=== PATIENT | female | born 1960 | race Caucasian/White ===

== ENCOUNTER 2017-05-19 14:17 | Inpatient (IN) ==
--- NOTE | 2017-05-18 21:35 | Discharge Summary ---
<Pamela Rabago E - Last Filed: 05/18/17 21:32> Date of Encounter: 05/18/17 - Discharge Diagnosis (1) Osteoarthritis of right knee Priority: Primary Status: Chronic Qualifiers: Osteoarthritis type: unspecified Qualified Code(s): M17.11 - Unilateral primary osteoarthritis, right knee (2) Chronic pain Priority: Secondary Status: Chronic Qualifiers: Chronic pain type: other chronic pain Qualified Code(s): G89.29 - Other chronic pain (3) HTN (hypertension) Priority: Secondary Status: Chronic Qualifiers: Hypertension type: unspecified Qualified Code(s): I10 - Essential (primary ) hypertension (4) Anxiety Priority: Secondary Status: Chronic (5) Depression Priority: Secondary Status: Chronic Qualifiers: Depression Type: unspecified Qualified Code(s): F32.9 - Major depressive disorder, single episode, unspecified - Discharge Medications Home Medications: Ibuprofen [Motrin] 600 mg PO Q6HR PRN 7 Days #28 tab 05/18/17 [Rx] Amitriptyline [Elavil] 50 mg PO HS 05/19/17 [History] Lansoprazole [Prevacid] 30 mg PO DAILY 05/19/17 [History] Lidocaine 1 patch TD DAILY 05/19/17 [History] Lisinopril/Hydrochlorothiazide [Zestoretic 20-12.5 mg Tablet] 1 tab PO DAILY [History] OxyCODONE ER (12 HR) [OxyCONTIN] 30 mg PO Q12HR 05/19/17 [History] Oxycodone HCl 15 mg PO Q4H PRN 05/19/17 [History] Venlafaxine HCl 100 mg PO TID 05/19/17 [History] diazePAM [Valium] 10 mg PO TID 05/19/17 [History] Allergies/Adverse Reactions: 3 Allergy/AdvReac Type Severity Reaction Status Date / Time fentanyl AdvReac Vomiting Verified 05/19/17 14:34 morphine AdvReac Vomiting Verified 05/19/17 14:34 Primary care physician: Uvaldo Roque, - Patient Status Disposition: Home, Self-Care Condition: Good - Discharge Instructions Follow Up With: Uvaldo Roque DO [Primary Care Provider] - - Hospital Course Hospital course: Ms. Johnson is a 57 year old female - Time Spent with Patient Total time spent providing and/or coordinating discharge services: <MohsenDada - Last Filed: 05/22/17 08:37> Date of Encounter: 05/22/17 Time of Encounter: 08:37 - Discharge Diagnosis (1) Obesity (BMI 30.0-34.9) Priority: Secondary Status: Chronic (2) Osteoarthritis of right knee Priority: Primary Status: Chronic Qualifiers: Osteoarthritis type: unspecified Qualified Code(s): M17.11 - Unilateral primary osteoarthritis, right knee (3) Chronic pain Priority: Secondary Status: Chronic Qualifiers: Chronic pain type: other chronic pain Qualified Code(s): G89.29 - Other chronic pain (4) HTN (hypertension) Priority: Secondary Status: Chronic Qualifiers: Hypertension type: unspecified Qualified Code(s): I10 - Essential (primary ) hypertension (5) Anxiety Priority: Secondary Status: Chronic (6) Depression Priority: Secondary Status: Chronic Qualifiers: Depression Type: unspecified Qualified Code(s): F32.9 - Major depressive disorder, single episode, unspecified (7) Status post right knee replacement Priority: Primary Status: Acute (8) Acute blood loss anemia Priority: Primary Status: Acute Primary care physician: Uvaldo Roque, - Patient Status Functional capacity at discharge: uses cane/walker Overall status at discharge: patient is progressing back to baseline - Hospital Course Hospital course: Ms. Johnson is a 57 year old female Status post right total knee replacement. The patient had an uneventful postoperative course. They received antibiotics and physical therapy and were discharged in stable condition. There will follow -up in the office in 2 weeks. - Time Spent with Patient Total time spent providing and/or coordinating discharge services:
--- NOTE | 2017-05-18 21:36 | Physician Discharge Referral ---
Home Health/Hosp Referral Info Transfer to: Home Health Attending Provider: Dr Dada Connolly - Diagnosis (1) Osteoarthritis of right knee Priority: Primary Status: Chronic (2) Chronic pain Priority: Secondary Status: Chronic (3) HTN (hypertension) Priority: Secondary Status: Chronic (4) Anxiety Priority: Secondary Status: Chronic (5) Depression Priority: Secondary Status: Chronic (6) Status post right knee replacement Priority: Primary Status: Acute - Respiratory Orders Smoking Cessation: Smoking cessation has been advised. For more information, call the [employer] Tobacco Quit Line at 4-012-IGWU-NOW. - Dressing/Wound Care Site: right knee Type of Dressing/Treatments w/Frequency: Opsite placed. Keep dressing intact until first follow up appointment. If > 50% saturated, notify office, remove dressing and place appropriate dressing back in place. Leave Zipline intact. Opsite dressing is water resistant, not water- proof. OK to shower, but do not get dressing wet. - Diet/Nutrition Diet/Nutrition Orders: Regular - Activity Activity Orders: Up ad irma, Ambulate, Chair, Walker Activity: List: Total Knee replacement Precautions x 6 weeks Apply cold therapy wrap 3-6x/day for 20 minutes at a time. Encourage ambulation throughout the day and incentive spirometer 10x/hour. Elevate affected extremity above heart as tolerated. Brace: Wear knee immobilizer at night x 2 weeks. - Services Needed Following services are medically necessary services: Nursing, Home Health Aide, Physical Therapy, Occupational Therapy - Transfer Medications Prescriptions: Ibuprofen [Motrin] 600 mg PO Q6HR PRN 7 Days #28 tab PRN Reason: Pain Home Medications: Diazepam [Valium] 10 mg PO 11/19/14 [History] Lisinopril [Zestril] 20 mg PO 11/19/14 [History] OxyCODONE ER (12 HR) [Oxycontin] 30 mg PO 11/19/14 [History] OxyCODONE/APAP 10/325 [Percocet 10/325] 1 each PO Q6HR 11/19/14 [History] Cephalexin [Keflex] 1,000 mg PO BID #40 capsule 02/06/17 [Rx] Mupirocin [Bactroban Oint] 1 appl TP BID #1 tube 02/06/17 [Rx] Ibuprofen [Motrin] 600 mg PO Q6HR PRN 7 Days #28 tab 05/18/17 [Rx] Allergies/Adverse Reactions: 3 Allergy/AdvReac Type Severity Reaction Status Date / Time fentanyl Allergy Vomiting Verified 05/07/17 11:04 morphine Allergy Difficulty Verified 05/07/17 11:04 Breathing Certification: Further, I certify that my clinical findings support that this patient is homebound (i.e. absences from home require considerable and taxing effort and are for medical reasons or jain services or infrequently or short duration when for other reasons) because: Homebound Reason: Post-surgery restriction and or conditions limit ability to leave home Attestation: My signature below is to certify that this patient is under my care and that I, or nurse practitioner, or a physician document control assistant working with me, has a face-to- face encounter with this patient.
[2017-05-19] MEDS ORDERED: CeFAZolin Syr 2,000MG/20 ML 2,000 MG/20 ML SYRINGE IVPB ONE (14:39)
[2017-05-19] MEDS ORDERED: Plasma-Lyte A (PH 7.4) 1,000 ML IVC SCH (14:45)
[2017-05-19] MEDS ORDERED: Scopolamine Patch 1.5 MG PATCH.TD72 TD ONE (15:02)
[2017-05-19] MEDS ORDERED: Famotidine 20 MG/2 ML VIAL IVP ONE (15:02)
[2017-05-19] MEDS ORDERED: Pregabalin 75 MG CAPSULE PO ONE (15:03)
--- NOTE | 2017-05-19 15:06 | Anesthesia Evaluation PreOp ---
Date of Encounter: 05/19/17 Time of Encounter: 15:00 - Past History Planned Operation: Rt TKA Cardiac History: HTN Pulmonary History: Denies Any Significant HX BILLING REPRESENTATIVE History: Other (Chronic Low Back Pain) Other Medical History: Other (IBS Depression) Anesthesia History: No Prior Anesthetic Complications : No Test: Negative Alcohol Use: none Drug use: none Medications and Allergies Ibuprofen [Motrin] 600 mg PO Q6HR PRN 7 Days #28 tab 05/18/17 [Rx] Amitriptyline [Elavil] 50 mg PO HS 05/19/17 [History] Lansoprazole [Prevacid] 30 mg PO DAILY 05/19/17 [History] Lidocaine 1 patch TD DAILY 05/19/17 [History] Lisinopril/Hydrochlorothiazide [Zestoretic 20-12.5 mg Tablet] 1 tab PO DAILY [History] OxyCODONE ER (12 HR) [OxyCONTIN] 30 mg PO Q12HR 05/19/17 [History] Oxycodone HCl 15 mg PO Q4H PRN 05/19/17 [History] Venlafaxine HCl 100 mg PO TID 05/19/17 [History] diazePAM [Valium] 10 mg PO TID 05/19/17 [History] 3 Allergy/AdvReac Type Severity Reaction Status Date / Time fentanyl AdvReac Vomiting Verified 05/19/17 14:34 morphine AdvReac Vomiting Verified 05/19/17 14:34 - Meds/Allergy Pre-op Review Medications Reviewed: Yes Allergies Reviewed: Yes Beta Blockers on Current Med List: No Anesthesia Results - Labs Laboratory Tests 05/07/17 05/07/17 11:20 11:20 Hgb 12.7 Hct 40.3 Plt Count 323 Sodium 137 Potassium 4.0 BUN 19 Creatinine 0.73 - Imaging EKG: report reviewed (SR) Anesthesia Exam O2 Sat Height 1.56 m Height 1.56 m Weight 81.193 kg Weight 81.193 kg O2 Sat by Pulse Oximetry 96 Vital Signs Temp Pulse Resp BP Pulse Ox 97.7 F 74 18 117/77 96 05/19/17 14:48 05/19/17 14:48 05/19/17 14:48 05/19/17 14:48 05/19/17 14:48 Height: 5'2 Weight: 179 lbs NPO (# of Hours): MN Pain Scale: 0 - HEENT Pupil (Motor): Pupils equal, EOMI Mallampati: II Teeth: Normal (Chipped Tooth rt molar) Oral Opening: Greater than 3 - BILLING REPRESENTATIVE LOC: Oriented BILLING REPRESENTATIVE Motor: Normal RUE, Normal LUE, Normal RLE, Normal LLE, Normal Face BILLING REPRESENTATIVE Sensory: Normal: RUE, LUE, RLE, LLE, Face - Cardiac Rhythm: Regular Murmur: None JVD: No Carotid Bruit: No - Pulmonary Breath Sounds: bilateral Clear Respiratory Effort: Symmetrical Anesthesia Assess/Plan ASA Score: 2 Modified Audrey Scale for Level of Consciousness: Cooperative, oriented, and tranquil Anesthetic Plan: General, Regional Monitoring Plan: Standard Monitors Recovery Plan: PACU (Discussed GA and RA, agrees to proceed)
--- NOTE | 2017-05-19 16:40 | History & Physical Report ---
Date of Encounter: 05/19/17 Time of Encounter: 16:39 24 Hour HP Update - Instructions Instructions: If the History and Physical is less than 30 days old and was completed prior to A.M. admission and or procedure and has NOT been updated on calendar day of procedure please complete this update prior to performing procedure. - Update Patient reports changes in Medical Condition: No Changes in examination, assessment, or condition: No Changes in Medication: No Preop tests/diagnostics Reviewed: Yes Surgery Remains Indicated: Yes Consent for Planned Operative Procedure(s) Verified: Yes - Pre-Operative Checklist Preoperative Checklist Indicated: No Prophylactic Antibiotic Ordered: Yes Is VTE Prophylaxis Indicated?: Yes
[2017-05-19] MEDS ORDERED: ROPIVACAINE HCL/PF 0.5% 30 ML VIAL ONE (17:08)
[2017-05-19] MEDS ORDERED: *HR* Midazolam HCl 5 MG/5 ML VIAL IVP ONE (17:08)
[2017-05-19] MEDS ORDERED: Bupivacaine/Clonidine Syringe 1 EACH SYRINGE ONE (17:09)
--- NOTE | 2017-05-19 17:38 | Anesthesia Procedures ---
Date of Encounter: 05/19/17 Time of Encounter: 17:36 Procedures: Anesthesia - Nerve Block Procedure Date: 05/19/17 Time: 17:36 Allergies/Adv Reactions: morphine, fentanyl Pre-op Diagnosis: R knee arthritis Surgical Procedure: R TKA Checklist: Correct Patient Identifier, Correct procedure, History checked Correct side: Right Blood Thinner: No Monitor Applied: EKG, BP, Pulse Oximetry Supplemental Oxygen via Nasal Cannula (L/min): 3 Sedation: Versed (mg): 5 Indication: Post Op Analgesia Pre-op Neuro Deficits: No Block Type: Femoral, Other (iPACK) Catheter placed: No Sterile Technique: Yes Ultrasound used: Yes Anatomy identified: Yes Visual spread of Local: Yes Neuro Stimulation: Yes Nerve Stimulator Range: 0.2 - 0.4 mA Blood on Needle Aspiration: No Smooth Injection of Local: Yes Pain with Injection of Local: No Prep: Chlorhexadine Needle: 22 x 50 mm Stimuplex (for femoral n. block), 21 x 100 mm Stimuplex (for iPACK block) Local: 0.25% Bupivicaine w/Clonidine 20 mcg/cc (20mL for iPACK), Ropivacaine ( 30mL of 0.5% for femoral n. block) Number of Attempts: 1 Complications: None/effective block Vitals: please see Nicki LANDAVERDE's electronic documentation for VS entry
[2017-05-19] MEDS ORDERED: Ethanol\\Acetic Acid\\Na Ace\\Ben 1,000 ML IRRIG.SOLN IR ONE (17:49)
[2017-05-19] MEDS ORDERED: *HR* Enoxaparin 30 MG/0.3 ML SYRINGE SQ SCH (18:00)
[2017-05-19] MEDS ORDERED: *HR* Propofol 200 MG/20 ML VIAL IVP ONE (18:17)
[2017-05-19] MEDS ORDERED: *HR* FentaNYL (PF) 100 MCG/2 ML VIAL ONE (18:17)
[2017-05-19] MEDS ORDERED: Ondansetron 4 MG/2 ML VIAL ONE (18:17)
[2017-05-19] MEDS ORDERED: Lidocaine -MPF 2% 2 ML VIAL ONE (18:17)
[2017-05-19] MEDS ORDERED: Dexamethasone 4 MG/ML VIAL ONE (18:17)
--- NOTE | 2017-05-19 19:16 | Orthopedic Operative Note ---
Date of procedure: 05/19/17 Pre-op diagnosis: Right knee arthritis Post-op diagnosis: same Procedure: Procedure: Right Total knee replacement Estimated blood loss: 200 cc Hardware: Metal and polyethylene replacement. Arthrex Femur: 4 Tibia: 4 PS insert: 12 Patella: 34 Exam Under anesthesia: Full flexion and extension no instability Procedural Notes: Grade 3 arthritic changes patellofemoral joint, grade 4 arthritic changes medial compartment. Operative procedure: The patient was brought to the operating room and placed on the operating room table. After general anesthesia was administered the operative knee was examined. Findings were noted in the exam under anesthesia. The operative extremity was prepped and draped in sterile surgical fashion. The patient received IV antibiotics prior to skin incision. A standard midline incision was made centered over the patella. The incision was made through the skin and subcutaneous tissue. A medial parapatellar tendon approach was performed. Care was taken to preserve tissue along the medial aspect of the patella. And to protect the patella tendon. The deep MCL was released off the medial tibia. The infra patella fat pad was excised. Knee was brought into flexion. Patient noted to have grade 4 arthritic changes medial compartment and grade 3 arthritic changes patellofemoral joint. The entry hole was made for the intramedullary femoral guide. The guide was seated in 6 degrees of valgus. Anterior cut was made followed by the distal cut. The ACL the PCL the medial and the lateral menisci were excised. The tibia was subluxed forward. The entry hole was made for the intramedullary tibial guide. Guide was seated to resect 2 mm off the more abnormal side. The knee was brought into flexion the distal femur was sized 4. The femoral guide was seated , the anterior cut was made followed by the posterior condylar cut, followed by the chamfer cuts. The finishing guide was seated the box cut was made and the lug holes were drilled. The tibia was sized to a 4, the tibial tray was seated and prepared with the large drill followed by the fin cutter. Trial reduction revealed full extension no varus valgus instability with the appropriate 12 PS Jocelyne. The patella was everted and cut was made at the level of the insertion of the quadriceps and patella tendon. The patella was sized to a 34 the guide was seated and the lug holes are drilled. Trial reduction revealed excellent patella tracking. All trial components were removed all bony surfaces were irrigated. The tibia was cemented first followed by the femur. The 12 PS Jocelyne was seated and the knee was brought into full extension. The patella was cemented and held in place with the patellar holding clamp. After the cement had hardened, the knee sat for 2 minutes with a antibacterial saline solution. The PA closed the knee. The knee was then irrigated out with 2 L of pulse irrigation. The extensor mechanism was closed with #2 FiberWire suture and #2 PDS suture. The subcutaneous tissue was then irrigated and closed deep with #1 PDS suture superficially with 0 PDS suture and skin was closed with skin emiliano. The patient was then placed in a sterile dressing and a postoperative brace extubated and transferred to recovery room in stable condition. Anesthesia: GETA Surgeon: Dada Connolly Was there an captain's assistant present: Yes Ceramic Design Engineer: Pamela Rabago Estimated blood loss (cc): 200 Condition: stable Disposition: PACU
[2017-05-19] MEDS ORDERED: Ketorolac 30 MG/ML VIAL ONE (19:28)
[2017-05-19 20:26] LABS: Hematocrit 35.1 % (35.3-44.9); Hemoglobin 11.5 g/dL (11.5-15.4)
[2017-05-19] MEDS ORDERED: *HR* OxyCODONE/APAP 10/325 TABLET PO PRN ×2 (20:40)
--- NOTE | 2017-05-19 21:26 | Anesthesia Evaluation Post Op ---
Date of Encounter: 05/19/17 Time of Encounter: 21:25 - Vital Signs Vital Signs: Vital Signs/O2 Sat, Most Current Temp Pulse Resp BP Pulse Ox 97.7 F 84 20 129/82 96 05/19/17 14:48 05/19/17 20:40 05/19/17 20:40 05/19/17 20:40 05/19/17 20:40 - Lungs Lungs: Clear Ascult./Percussion - Airway Airway: Non-obstructed - Cardiovascular Regular Rate - Mental Status Mental Status: Alert & Oriented, Answers Appropriately - Pain Pain Scale: 7 Pain Scale used: Numeric (1 - 10) - Nausea Vomiting Nausea Vomiting: Not Present - Hydration Hydration: NPO, Has not voided - Discharge PostOp Status: Transfer Patient to floor
[2017-05-19] MEDS ORDERED: Ringers Solution, Lactated 1,000 ML IVC SCH (22:26)
[2017-05-19] MEDS ORDERED: Temazepam 15 MG CAPSULE PO PRN (22:26)
[2017-05-19] MEDS ORDERED: MOM Conc 10 ML UD.LIQ PO PRN (22:26)
[2017-05-19] MEDS ORDERED: Naloxone 0.4 MG/ML INJ IVP PRN (22:26)
[2017-05-19] MEDS ORDERED: Ondansetron 4 MG/2 ML VIAL IVP PRN (22:26)
[2017-05-19] MEDS ORDERED: Sennosides 8.6 MG TABLET PO PRN (22:26)
[2017-05-19] MEDS ORDERED: VENLAFAXINE HCL 100 MG PO SCH (22:26)
[2017-05-19] MEDS: diazePAM 10 MG TABLET PO SCH (23:28)
[2017-05-19] MEDS: CeFAZolin Premix DUPLEX 2,000 MG/50 ML BAG IVPB SCH (23:28)
[2017-05-19] MEDS: *HR* OxyCODONE ER (12 HR) 10 MG TABLET PO SCH (23:28)
[2017-05-19] MEDS: Venlafaxine 25 MG, Venlafaxine 75 MG PO SCH (23:37)
[2017-05-20] MEDS: *HR* OxyCODONE Immed Rel 15 MG TABLET PO PRN ×5 (04:36→23:30)
[2017-05-20] MEDS: *HR* OxyCODONE ER (12 HR) 10 MG TABLET PO SCH ×2 (05:59→17:08)
[2017-05-20] MEDS: *HR* Enoxaparin 30 MG/0.3 ML SYRINGE SQ SCH ×2 (06:00→18:43)
--- NOTE | 2017-05-20 06:57 | Orthopedics Progress Note ---
Date of Encounter: 05/20/17 Time of Encounter: 06:57 - Assessment and Plan (1) Obesity (BMI 30.0-34.9) Current Visit: Yes Status: Chronic (2) Osteoarthritis of right knee Current Visit: No Status: Chronic Qualifiers: Osteoarthritis type: unspecified Qualified Code(s): M17.11 - Unilateral primary osteoarthritis, right knee (3) Chronic pain Current Visit: No Status: Chronic Qualifiers: Chronic pain type: other chronic pain Qualified Code(s): G89.29 - Other chronic pain (4) HTN (hypertension) Current Visit: No Status: Chronic Qualifiers: Hypertension type: unspecified Qualified Code(s): I10 - Essential (primary ) hypertension (5) Anxiety Current Visit: No Status: Chronic (6) Depression Current Visit: No Status: Chronic Qualifiers: Depression Type: unspecified Qualified Code(s): F32.9 - Major depressive disorder, single episode, unspecified (7) Status post right knee replacement Current Visit: No Status: Acute Subjective Interval history: Patient was seen this morning doing well without complaints. Afebrile vital signs stable. Operative extremity: Neurovascularly intact Dressing clean dry and intact Calves nontender Assessment and plan: Continue with postoperative care Hematocrit 35 Objective Vital signs: Vital Signs Temp Pulse Resp BP Pulse Ox 05/20/17 03:47 98.8 F 81 16 115/75 97 05/20/17 00:30 98.9 F 89 16 118/74 97 05/19/17 23:30 98.9 F 82 16 102/57 97 05/19/17 22:30 98.4 F 76 16 100/67 99 05/19/17 22:00 98.5 F 82 16 121/87 100 05/19/17 21:30 98.5 F 80 18 131/85 100 05/19/17 20:50 82 20 125/93 98 05/19/17 20:40 97.9 F 84 20 129/82 96 05/19/17 20:30 88 20 108/74 95 05/19/17 20:20 93 22 108/74 98 05/19/17 20:10 93 20 105/91 99 05/19/17 20:00 91 20 119/72 99 05/19/17 14:48 97.7 F 74 18 117/77 96 Intake and Output 05/19/17 05/19/17 05/20/17 15:59 23:59 07:59 Intake Total 50 / 50 Output Total 400 / 400 Balance -350 / -350 Intake: IV Fluids 50 / 50 Ancef Premix DUPLEX 2,000 mg In 50 / 50 50 ml @ 100 mls/hr IVPB Q8HR [facility] Rx#:[id number] Output: Urine 200 / 200 Estimated Blood Loss 200 / 200 Other: Weight 81.193 kg - Labs CBC & BMP: 05/19/17 20:08 Labs: Abnormal lab results Hct 35.1 % (35.3-44.9) L 05/19/17 20:08 - VTE Documentation of Mechanical Device: Intermittent pneumatic compression device Consult Discharge Plan - Plan Referrals: Uvaldo Roque DO [Primary Care Provider] -
[2017-05-20] MEDS ORDERED: *HR* OxyCODONE Immed Rel 5 MG TABLET PO PRN (07:17)
[2017-05-20 07:33] LABS: Hematocrit 30.8 % (35.3-44.9)
[2017-05-20 09:28] LABS: BUN/Creatinine Ratio 32 (6-26); Blood Urea Nitrogen 24 mg/dL (6-20); Calcium 8.4 mg/dL (8.6-10.3); Carbon Dioxide 28 mEq/L (23-29); Chloride 100 mEq/L (98-107); Glucose 107 mg/dL (70-105); Osmolality,Calculated 279 (280-300); Potassium 4.2 mEq/L (3.5-5.1); Sodium 132 mEq/L (136-145); eGFR For African Americans > 60 (> 60); eGFR For Non-African Americans > 60 (> 60)
[2017-05-20] MEDS: diazePAM 10 MG TABLET PO SCH ×3 (09:38→21:37)
[2017-05-20] MEDS: Venlafaxine 25 MG, Venlafaxine 75 MG PO SCH ×3 (09:38→21:34)
[2017-05-20] MEDS: Lisinopril-HCTZ 20-12.5mg TABLET PO SCH (09:38)
[2017-05-20] MEDS: CeFAZolin Premix DUPLEX 2,000 MG/50 ML BAG IVPB SCH (09:39)
[2017-05-20] MEDS: Ibuprofen 800 MG TABLET PO PRN (15:20)
[2017-05-20] MEDS ORDERED: *HR* HYDROmorphone (PF) 1 MG/ML SYRINGE IVP PRN (16:34)
[2017-05-20] MEDS: Ketorolac 30 MG/ML VIAL IVP SCH ×2 (17:08→23:29)
--- NOTE | 2017-05-20 17:14 | Event Note ---
Date of Encounter: 05/20/17 Time of Encounter: 12:50 PCR- POD# 1 R LOUISEDutch Connolly 05/19/17 PCR - Patient seen at bedside. Pain control: Adequate Participating in PT. All questions and concerns addressed. Educated on use of incentive spirometer, ambulation, and hydration. Patient educated on post-operative restrictions and care. Addressed: see above. D/C plan: Home with home health - patient takes chronic pain medication and is aware we will not be prescribing any upon discharge. Patient does have Ibuprofen script as she requested ready for discharge.
[2017-05-20] MEDS: Gabapentin 300 MG CAPSULE PO SCH (17:19)
[2017-05-20] MEDS: Acetaminophen IV 1,000 MG/100 ML INFUS..BTL IVPB PRN (17:38)
[2017-05-20] MEDS: *HR* OxyCODONE Immed Rel 5 MG TABLET PO PRN (21:34)
[2017-05-21] MEDS: Gabapentin 300 MG CAPSULE PO SCH ×3 (01:14→18:03)
[2017-05-21] MEDS: Ketorolac 30 MG/ML VIAL IVP SCH (05:41)
[2017-05-21] MEDS: *HR* Enoxaparin 30 MG/0.3 ML SYRINGE SQ SCH ×2 (05:41→18:03)
[2017-05-21] MEDS: *HR* OxyCODONE ER (12 HR) 10 MG TABLET PO SCH ×2 (05:41→18:03)
[2017-05-21 06:52] LABS: Hematocrit 27.3 % (35.3-44.9); Hemoglobin 9.1 g/dL (11.5-15.4)
[2017-05-21 08:21] LABS: BUN/Creatinine Ratio 22 (6-26); Blood Urea Nitrogen 17 mg/dL (6-20); Calcium 8.3 mg/dL (8.6-10.3); Carbon Dioxide 27 mEq/L (23-29); Chloride 92 mEq/L (98-107); Glucose 105 mg/dL (70-105); Osmolality,Calculated 262 (280-300); Potassium 3.5 mEq/L (3.5-5.1); Sodium 125 mEq/L (136-145); eGFR For African Americans > 60 (> 60); eGFR For Non-African Americans > 60 (> 60)
[2017-05-21] MEDS: Lisinopril-HCTZ 20-12.5mg TABLET PO SCH (09:02)
[2017-05-21] MEDS: *HR* OxyCODONE Immed Rel 15 MG TABLET PO PRN ×2 (09:26→13:34)
[2017-05-21] MEDS: Venlafaxine 25 MG, Venlafaxine 75 MG PO SCH ×3 (09:27→21:24)
[2017-05-21] MEDS: diazePAM 10 MG TABLET PO SCH ×3 (09:27→21:24)
--- NOTE | 2017-05-21 10:31 | Orthopedics Progress Note ---
Date of Encounter: 05/21/17 Time of Encounter: 10:30 - Assessment and Plan (1) Obesity (BMI 30.0-34.9) Current Visit: Yes Status: Chronic (2) Osteoarthritis of right knee Current Visit: No Status: Chronic Qualifiers: Osteoarthritis type: unspecified Qualified Code(s): M17.11 - Unilateral primary osteoarthritis, right knee (3) Chronic pain Current Visit: No Status: Chronic Qualifiers: Chronic pain type: other chronic pain Qualified Code(s): G89.29 - Other chronic pain (4) HTN (hypertension) Current Visit: No Status: Chronic Qualifiers: Hypertension type: unspecified Qualified Code(s): I10 - Essential (primary ) hypertension (5) Anxiety Current Visit: No Status: Chronic (6) Depression Current Visit: No Status: Chronic Qualifiers: Depression Type: unspecified Qualified Code(s): F32.9 - Major depressive disorder, single episode, unspecified (7) Status post right knee replacement Current Visit: No Status: Acute (8) Acute blood loss anemia Current Visit: Yes Status: Acute Subjective Interval history: Patient was seen this morning doing well without complaints. Afebrile vital signs stable. Operative extremity: Neurovascularly intact Dressing clean dry and intact Calves nontender Assessment and plan: Continue with postoperative care hb 9.1 Objective Vital signs: Vital Signs Temp Pulse Resp BP Pulse Ox 05/21/17 09:07 111/71 05/21/17 07:53 98.4 F 88 16 97/63 93 05/20/17 19:54 98.5 F 82 15 134/82 99 05/20/17 16:14 97.5 F L 90 16 129/78 100 05/20/17 13:56 98.6 F 84 20 110/68 100 Intake and Output 05/20/17 05/21/17 05/21/17 23:59 07:59 15:59 Other: # Voids 1 - Labs CBC & BMP: 05/21/17 06:12 05/21/17 06:12 Labs: Abnormal lab results Hgb 9.1 g/dL (11.5-15.4) L 05/21/17 06:12 Hct 27.3 % (35.3-44.9) L 05/21/17 06:12 Sodium 125 mEq/L (136-145) L 05/21/17 06:12 Chloride 92 mEq/L (98-107) L 05/21/17 06:12 Calculated Osmolality 262 (280-300) L 05/21/17 06:12 Calcium 8.3 mg/dL (8.6-10.3) L 05/21/17 06:12 - VTE Documentation of Mechanical Device: Intermittent pneumatic compression device Consult Discharge Plan - Plan Referrals: Uvaldo Roque DO [Primary Care Provider] -
[2017-05-21] MEDS: Ibuprofen 800 MG TABLET PO PRN (11:30)
[2017-05-21] MEDS: Acetaminophen IV 1,000 MG/100 ML INFUS..BTL IVPB PRN ×2 (15:58→23:38)
[2017-05-22] MEDS: Gabapentin 300 MG CAPSULE PO SCH ×2 (00:14→10:35)
[2017-05-22] MEDS: *HR* Enoxaparin 30 MG/0.3 ML SYRINGE SQ SCH (06:15)
[2017-05-22] MEDS: *HR* OxyCODONE ER (12 HR) 10 MG TABLET PO SCH (06:15)
[2017-05-22 07:31] VITALS: BP 126/79
--- NOTE | 2017-05-22 08:38 | Orthopedics Progress Note ---
Date of Encounter: 05/22/17 Time of Encounter: 08:38 - Assessment and Plan (1) Obesity (BMI 30.0-34.9) Current Visit: Yes Status: Chronic (2) Osteoarthritis of right knee Current Visit: No Status: Chronic Qualifiers: Osteoarthritis type: unspecified Qualified Code(s): M17.11 - Unilateral primary osteoarthritis, right knee (3) Chronic pain Current Visit: No Status: Chronic Qualifiers: Chronic pain type: other chronic pain Qualified Code(s): G89.29 - Other chronic pain (4) HTN (hypertension) Current Visit: No Status: Chronic Qualifiers: Hypertension type: unspecified Qualified Code(s): I10 - Essential (primary ) hypertension (5) Anxiety Current Visit: No Status: Chronic (6) Depression Current Visit: No Status: Chronic Qualifiers: Depression Type: unspecified Qualified Code(s): F32.9 - Major depressive disorder, single episode, unspecified (7) Status post right knee replacement Current Visit: No Status: Acute (8) Acute blood loss anemia Current Visit: Yes Status: Acute Subjective Interval history: Patient was seen this morning doing well without complaints. Afebrile vital signs stable. Operative extremity: Neurovascularly intact Dressing clean dry and intact Calves nontender Assessment and plan: Continue with postoperative care Discharged today Objective Vital signs: Vital Signs Temp Pulse Resp BP Pulse Ox 05/22/17 06:44 97.8 F 76 18 126/79 99 05/21/17 23:51 97.9 F 83 17 121/74 98 05/21/17 20:23 97.7 F 85 20 124/74 98 05/21/17 15:34 98.2 F 82 16 120/80 97 05/21/17 09:07 111/71 Intake and Output 05/21/17 05/22/17 05/22/17 23:59 07:59 15:59 Intake Total 900 / 900 0 / 0 Output Total 450 / 450 Balance 900 / 900 -450 / -450 Intake: IV Fluids 100 / 100 Ofirmev 1,000 mg/100 ml 1,000 100 / 100 mg In 100 ml @ 400 mls/hr IVPB Q6H PRN Rx#:[id number] Oral 800 / 800 0 / 0 Output: Urine 450 / 450 Other: # Voids 1 - Labs CBC & BMP: 05/21/17 06:12 05/21/17 06:12 Labs: Abnormal lab results Hgb 9.1 g/dL (11.5-15.4) L 05/21/17 06:12 Hct 27.3 % (35.3-44.9) L 05/21/17 06:12 Sodium 125 mEq/L (136-145) L 05/21/17 06:12 Chloride 92 mEq/L (98-107) L 05/21/17 06:12 Calculated Osmolality 262 (280-300) L 05/21/17 06:12 Calcium 8.3 mg/dL (8.6-10.3) L 05/21/17 06:12 - VTE Documentation of Mechanical Device: Intermittent pneumatic compression device Consult Discharge Plan - Plan Referrals: Uvaldo Roque DO [Primary Care Provider] -
[2017-05-22] MEDS: Lisinopril-HCTZ 20-12.5mg TABLET PO SCH (09:06)
[2017-05-22] MEDS: *HR* OxyCODONE Immed Rel 5 MG TABLET PO PRN ×2 (09:07→13:14)
[2017-05-22] MEDS: Venlafaxine 25 MG, Venlafaxine 75 MG PO SCH (10:35)
[2017-05-22] MEDS: diazePAM 10 MG TABLET PO SCH (10:35)
[2017-05-22] MEDS: Ibuprofen 800 MG TABLET PO PRN (12:11)
== END 2017-05-22 13:43 | disposition home or self-care (01) | DRG 302 ==
LOC: SAMDAY 14:17 → 3NENU 21:24
PROVIDERS: ADMIT Orthopaedic Surgery; ATTEND Orthopaedic Surgery

== ENCOUNTER 2017-05-27 17:30 | Inpatient (IN) ==
--- NOTE | 2017-05-27 19:39 | Emergency Department Note ---
Disposition Clinical Impression: Status post right knee replacement, Cellulitis and abscess of leg Disposition: Admitted As Inpatient Referrals: Uvaldo Roque DO [Primary Care Provider] - Forms: ED Satisfaction Letter General Adult HPI - General Chief complaint: ED Shortness of Breath/Dyspnea Stated complaint: SEDRICK, recent knee replacement Time Seen by Provider: 05/27/17 19:19 Source: patient Limitations: no limitations Nursing Notes Reviewed: Yes Vital Signs Reviewed: Yes - History of Present Illness Pain Scale: 10 - Related Data Home Medications Medication Instructions Recorded Confirmed Amitriptyline [Elavil] 50 mg PO HS 05/19/17 05/19/17 Lansoprazole [Prevacid] 30 mg PO DAILY 05/19/17 05/27/17 Lidocaine 1 patch TD DAILY 05/19/17 05/27/17 Lisinopril/Hydrochlorothiazide 1 tab PO DAILY 05/19/17 05/27/17 [Zestoretic 20-12.5 mg Tablet] OxyCODONE ER (12 HR) [OxyCONTIN] 30 mg PO Q12HR 05/19/17 05/27/17 Oxycodone HCl 15 mg PO Q4H PRN 05/19/17 05/27/17 Venlafaxine HCl 100 mg PO TID 05/19/17 05/27/17 diazePAM [Valium] 10 mg PO TID 05/19/17 05/27/17 Previous Rx's Medication Instructions Recorded Ibuprofen [Motrin] 600 mg PO Q6HR PRN 7 Days #28 tab 05/18/17 Allergies Allergy/AdvReac Type Severity Reaction Status Date / Time fentanyl AdvReac Vomiting Verified 05/27/17 17:47 morphine AdvReac Vomiting Verified 05/27/17 17:47 Past Medical History - Past Medical History Medical history: Reports: other Surgical history: Reports: non-contributory, herniorrhaphy, hysterectomy, orthopedic, other, other Psychiatric history: Reports: depression 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 - Social History Smoking Status: Never smoker Smokeless Tobacco Status: No Alcohol use: Reports: none Drug use: Reports: none Physical Exam - General Limitations: no limitations General appearance: alert Course Vital Signs Temperature 99.6 F 05/27/17 17:47 Pulse Rate 64 05/27/17 17:47 Respiratory Rate 24 05/27/17 17:47 Blood Pressure 141/61 05/27/17 17:47 O2 Sat by Pulse Oximetry 95 05/27/17 17:47 Temperature 99.6 F 05/27/17 17:47 Pulse Rate 99 05/27/17 22:24 Respiratory Rate 18 05/27/17 22:24 Blood Pressure 104/75 05/27/17 22:24 O2 Sat by Pulse Oximetry 98 05/27/17 22:24 Oxygen Delivery Oxygen Delivery Room Air Medical Decision Making - MDM Narrative Medical decision making narrative: This documentation is done with the assistance of Dragon dictation. There may be inaccuracies in reclaimer or spelling and typographical errors. I examined this patient and my medical decision-making was reviewed with the Resident Physician. I agree with the documented findings, disposition and treatment plan as described except to the extent set forth below. Patient presents today was seen by Dr. Trinidad and myself, high-grade his evaluation and management plan, supervise care the patient's stay. Patient's postop 1 week from knee surgery on her left knee done by Dr. Connolly here. She is increased swelling around the area she has also had a cough and subjective warmth to the area home but it is red and warm to the area without C drainage now. She has a quite a bit of swelling on the surgical side versus her normal leg. She denies any abdominal pain at this time no chest pain. Going to rule out DVT on the side. I also think that this could be infected so look that was CBC she may need antibiotics was likely to need admission. She is in agreement with this plan. Chest X-Ray 05/27/17 17:52 IMPRESSION: No acute abnormality. D/ / Rosendo Goldstein MD / Rosendo Goldstein MD Interpreting Provider: Rosendo Goldstein MD 2100 hrs.: DVT study is negative per vascular specialists. Waiting on CTA and lab work. Chest X-Ray 05/27/17 17:52 IMPRESSION: No acute abnormality. D/ / Rosendo Goldstein MD / Rosendo Goldstein MD Interpreting Provider: Rosendo Goldstein MD Chest CTA 05/27/17 19:51 IMPRESSION: No convincing evidence for pulmonary embolism. Suboptimal evaluation of the distal segmental and subsegmental vessels as described above. No evidence for right heart strain or pulmonary infarction. D/ / Renato Carr MD / Renato Carr MD Interpreting Provider: Renato Carr MD Knee X-Ray 05/27/17 20:08 IMPRESSION: Diffuse soft tissue swelling new from the comparison. No acute abnormality of the knee otherwise including the arthroplasty, which appears normal. D/ / Kaiser Perera MD / Kaiser Perera MD Interpreting Provider: Kaiser Perera MD 2146 hrs. Due to her postop the redness and warmth on her knee negative rule out for DVT and PE and will start her on anabolic serum bring her into the hospital. She is in agreement with plan orthopedics in and see her also. - Lab Data Result diagrams: 05/27/17 20:21 05/27/17 20:21 Lab Results 05/27/17 05/27/17 05/27/17 Range/Units 20:00 20:21 20:21 WBC 8.6 (4.3-11.1) K/mcL RBC 2.82 L (3.82-4.97) M/mcL Hgb 8.5 L (11.5-15.4) g/dL Hct 26.0 L (35.3-44.9) % MCV 92.2 (83.0-100.0) fL MCH 30.1 (28.0-33.3) pg MCHC 32.7 (31.6-35.5) g/dL RDW 12.8 (11.5-14.5) % Plt Count 399 (140-400) K/mcL MPV 9.1 L (9.4-12.4) fL Immature Gran % 0.6 (0-4) % Seg Neutrophils % 60.9 % Lymphocytes % 21.3 % Monocytes % 7.1 % Eosinophils % 9.7 % Basophils % 0.4 % Neutrophils # 5.2 (1.6-8.9) K/mcL Lymphocytes # 1.8 (0.6-4.6) K/mcL Monocytes # 0.6 (0.0-1.3) K/mcL Eosinophils # 0.8 H (0.0-0.6) K/mcL Basophils # 0.0 (0.0-0.2) K/mcL Sodium 134 L (136-145) mEq/L Potassium 4.0 (3.5-5.1) mEq/L Chloride 99 (98-107) mEq/L Carbon Dioxide 33 H (23-29) mEq/L BUN 11 (6-20) mg/dL Creatinine 0.54 L (0.60-1.20) mg/dL Est GFR ( Amer) > 60 (> 60) Est GFR (Non-Af Amer) > 60 (> 60) BUN/Creatinine Ratio 20 (6-26) Glucose 77 (70-105) mg/dL Calculated Osmolality 276 L (280-300) Lactic Acid (0.5-2.2) mmol/L Calcium 9.0 (8.6-10.3) mg/dL Total Bilirubin 0.4 (0.3-1.0) mg/dL AST 19 (13-39) Units/L ALT 18 (7-52) Units/L Alkaline Phosphatase 132 H (34-104) Units/L Troponin I (< 0.04) ng/mL Serum Total Protein 6.5 (6.4-8.9) g/dL Albumin 3.8 (3.5-5.7) g/dL Globulin 2.7 (2.4-3.5) g/dL Albumin/Globulin Ratio 1.4 (1.1-2.2) Urine Color Yellow (Yellow) Urine Clarity Clear (Clear) Urine pH 7.0 (5.0-8.0) pH Units Ur Specific [place] 1.013 (1.010-1.025) Urine Protein Negative (Neg-Trace) mg/dL Urine Glucose (UA) Normal (Normal) mg/dL Urine Ketones Negative (Negative) mg/dL Urine Blood Negative (Negative) Urine Nitrite Negative (Negative) Urine Bilirubin Negative (Negative) Urine Urobilinogen Normal (Normal) mg/dL Ur Leukocyte Esterase Negative (Negative) Ur Culture Indicated? NO (NO) 05/27/17 05/27/17 Range/Units 20:21 20:21 WBC (4.3-11.1) K/mcL RBC (3.82-4.97) M/mcL Hgb (11.5-15.4) g/dL Hct (35.3-44.9) % MCV (83.0-100.0) fL MCH (28.0-33.3) pg MCHC (31.6-35.5) g/dL RDW (11.5-14.5) % Plt Count (140-400) K/mcL MPV (9.4-12.4) fL Immature Gran % (0-4) % Seg Neutrophils % % Lymphocytes % % Monocytes % % Eosinophils % % Basophils % % Neutrophils # (1.6-8.9) K/mcL Lymphocytes # (0.6-4.6) K/mcL Monocytes # (0.0-1.3) K/mcL Eosinophils # (0.0-0.6) K/mcL Basophils # (0.0-0.2) K/mcL Sodium (136-145) mEq/L Potassium (3.5-5.1) mEq/L Chloride (98-107) mEq/L Carbon Dioxide (23-29) mEq/L BUN (6-20) mg/dL Creatinine (0.60-1.20) mg/dL Est GFR ( Amer) (> 60) Est GFR (Non-Af Amer) (> 60) BUN/Creatinine Ratio (6-26) Glucose (70-105) mg/dL Calculated Osmolality (280-300) Lactic Acid 0.9 (0.5-2.2) mmol/L Calcium (8.6-10.3) mg/dL Total Bilirubin (0.3-1.0) mg/dL AST (13-39) Units/L ALT (7-52) Units/L Alkaline Phosphatase (34-104) Units/L Troponin I < 0.03 (< 0.04) ng/mL Serum Total Protein (6.4-8.9) g/dL Albumin (3.5-5.7) g/dL Globulin (2.4-3.5) g/dL Albumin/Globulin Ratio (1.1-2.2) Urine Color (Yellow) Urine Clarity (Clear) Urine pH (5.0-8.0) pH Units Ur Specific [place] (1.010-1.025) Urine Protein (Neg-Trace) mg/dL Urine Glucose (UA) (Normal) mg/dL Urine Ketones (Negative) mg/dL Urine Blood (Negative) Urine Nitrite (Negative) Urine Bilirubin (Negative) Urine Urobilinogen (Normal) mg/dL Ur Leukocyte Esterase (Negative) Ur Culture Indicated? (NO)
[2017-05-27] MEDS ORDERED: *HR* OxyCODONE Immed Rel 5 MG TABLET PO ONE (19:50)
--- NOTE | 2017-05-27 19:51 | Emergency Department Note ---
Disposition Clinical Impression: Swelling of right lower extremity, Cellulitis of right lower extremity S/P total knee arthroplasty Qualifiers: Laterality: right Qualified Code(s): Z96.651 - Presence of right artificial knee joint Disposition: Admitted As Inpatient Condition: Fair Referrals: Uvaldo Roque DO [Primary Care Provider] - Forms: ED Satisfaction Letter Time of Disposition: 22:36 SOB HPI - General Chief Complaint: ED Shortness of Breath/Dyspnea Stated Complaint: SEDIRCK, recent knee replacement Time Seen by Provider: 05/27/17 19:19 Source: patient Mode of arrival: ambulatory Limitations: no limitations Nursing Notes Reviewed: Yes Vital Signs Reviewed: Yes - History of Present Illness 57-year-old female history of hypertension, obesity, arthritis this, status post right knee replacement with Dr. Connolly one week ago, the patient presents complaining of right knee pain and swelling. Patient is ambulatory with a walker. She states she has had worsening pain, low-grade fevers at home, patient denies dysuria. She denies history of DVT or PE however interestingly, she does have a Malik filter that was placed after previous surgery. The patient states that she has had some cough but nonproductive, some shortness of breath and tightness in her chest, she describes the leg pain as being 8 out of 10, nonradiating throughout her whole leg worse her knee. Worse with weightbearing. Pt Subjective Complaint: shortness of breath Improves with: nothing Worsens with: nothing Associated symptoms: Reports: chest pain, fever, cough, other (Right knee pain) . Denies: pain with inspiration, orthopnea, lower extremity pain, palpitations Treatment prior to arrival: none Cough present: Yes - Related Data Home Medications Medication Instructions Recorded Confirmed Amitriptyline [Elavil] 50 mg PO HS 05/19/17 05/19/17 Lansoprazole [Prevacid] 30 mg PO DAILY 05/19/17 05/27/17 Lidocaine 1 patch TD DAILY 05/19/17 05/27/17 Lisinopril/Hydrochlorothiazide 1 tab PO DAILY 05/19/17 05/27/17 [Zestoretic 20-12.5 mg Tablet] OxyCODONE ER (12 HR) [OxyCONTIN] 30 mg PO Q12HR 05/19/17 05/27/17 Oxycodone HCl 15 mg PO Q4H PRN 05/19/17 05/27/17 Venlafaxine HCl 100 mg PO TID 05/19/17 05/27/17 diazePAM [Valium] 10 mg PO TID 05/19/17 05/27/17 Previous Rx's Medication Instructions Recorded Ibuprofen [Motrin] 600 mg PO Q6HR PRN 7 Days #28 tab 05/18/17 Allergies Allergy/AdvReac Type Severity Reaction Status Date / Time fentanyl AdvReac Vomiting Verified 05/27/17 17:47 morphine AdvReac Vomiting Verified 05/27/17 17:47 All systems ED: reviewed and negative except as stated. Review of Systems: As Per HPI Constitutional: Reports: fever, chills Eyes: Denies: eye pain ENT ED: Denies: ear pain Cardiovascular: Denies: chest pain Respiratory: Reports: as per HPI, cough. Denies: dyspnea Gastrointestinal: Denies: abdominal pain, nausea Genitourinary: Denies: urgency, dysuria Musculoskeletal: Reports: as per HPI, joint swelling, arthralgia. Denies: back pain Integumentary: Denies: rash, abrasion Neurological: Denies: headache Psychiatric: Denies: anxiety Past Medical History - Past Medical History Attestation: Yes The following information was validated with the patient. 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 - Social History Smoking Status: Never smoker Smokeless Tobacco Status: No Alcohol use: Reports: none Drug use: Reports: none Physical Exam - General Limitations: no limitations General appearance: alert - Head Head exam: atraumatic - Eye Eye exam: Present: normal appearance, PERRL - ENT ENT exam: normal exam - Neck Neck exam: Present: normal inspection, full ROM - Chest Chest inspection: Present: normal inspection - Respiratory Respiratory exam: Present: normal lung sounds bilaterally - Cardiovascular Cardiovascular exam: Present: regular rate, normal rhythm - Abdominal Exam Abdominal exam: Present: soft, Non-Tender. Absent: tenderness, distention, guarding, rebound, rigidity - Expanded Lower Extremity Exam Hip/Pelvis exam: Present: normal inspection, full ROM Upper leg exam: Present: tenderness, swelling 1 - Erythematous, no crepitus, +3 pitting edema, no pus or drainage from the wound. Knee exam: Present: tenderness, swelling Lower leg exam: Present: tenderness, swelling, erythema Ankle exam: Present: tenderness, swelling, erythema Foot/toe exam: Present: tenderness, swelling, erythema - Neurological Exam Neurological exam: Present: alert, oriented X3, CN II-XII intact - Psychiatric Psychiatric exam: Present: normal affect Course Course Narrative: 57-year-old female with right knee pain, swollen joint postsurgical scar. On the right anterior knee with no purulence, however there is erythema and warmth , redness, no crepitus, knee x-ray as well as DVT study given that she is having upper respiratory symptoms CT of her chest as well. Basic lab work and reassess - Consultations Consultation #1: I spoke with Dr. Connolly in the emergency department, he agrees with admission and empiric antibiotics for coverage for possible joint infection postoperative , admitted to medicine service Dr. Mojica excepting at this time. Time: 22:34 Vital Signs Temperature 99.6 F 05/27/17 17:47 Pulse Rate 64 05/27/17 17:47 Respiratory Rate 24 05/27/17 17:47 Blood Pressure 141/61 05/27/17 17:47 O2 Sat by Pulse Oximetry 95 05/27/17 17:47 Temperature 99.6 F 05/27/17 17:47 Pulse Rate 99 05/27/17 22:24 Respiratory Rate 18 05/27/17 22:24 Blood Pressure 104/75 05/27/17 22:24 O2 Sat by Pulse Oximetry 98 05/27/17 22:24 Oxygen Delivery Oxygen Delivery Room Air Shortness of Breath/Dyspnea - Differential Diagnosis Likely: acute exacerbation of chronic obstructive airways disease, congestive heart failure, pneumonia, asthma with exacerbation - Medical Records Medical records reviewed: Yes I reviewed the patient's medical records. - Lab Data Result diagrams: 05/27/17 20:21 05/27/17 20:21 Lab Results 05/27/17 05/27/17 05/27/17 Range/Units 20:00 20:21 20:21 WBC 8.6 (4.3-11.1) K/mcL RBC 2.82 L (3.82-4.97) M/mcL Hgb 8.5 L (11.5-15.4) g/dL Hct 26.0 L (35.3-44.9) % MCV 92.2 (83.0-100.0) fL MCH 30.1 (28.0-33.3) pg MCHC 32.7 (31.6-35.5) g/dL RDW 12.8 (11.5-14.5) % Plt Count 399 (140-400) K/mcL MPV 9.1 L (9.4-12.4) fL Immature Gran % 0.6 (0-4) % Seg Neutrophils % 60.9 % Lymphocytes % 21.3 % Monocytes % 7.1 % Eosinophils % 9.7 % Basophils % 0.4 % Neutrophils # 5.2 (1.6-8.9) K/mcL Lymphocytes # 1.8 (0.6-4.6) K/mcL Monocytes # 0.6 (0.0-1.3) K/mcL Eosinophils # 0.8 H (0.0-0.6) K/mcL Basophils # 0.0 (0.0-0.2) K/mcL Sodium 134 L (136-145) mEq/L Potassium 4.0 (3.5-5.1) mEq/L Chloride 99 (98-107) mEq/L Carbon Dioxide 33 H (23-29) mEq/L BUN 11 (6-20) mg/dL Creatinine 0.54 L (0.60-1.20) mg/dL Est GFR ( Amer) > 60 (> 60) Est GFR (Non-Af Amer) > 60 (> 60) BUN/Creatinine Ratio 20 (6-26) Glucose 77 (70-105) mg/dL Calculated Osmolality 276 L (280-300) Lactic Acid (0.5-2.2) mmol/L Calcium 9.0 (8.6-10.3) mg/dL Total Bilirubin 0.4 (0.3-1.0) mg/dL AST 19 (13-39) Units/L ALT 18 (7-52) Units/L Alkaline Phosphatase 132 H (34-104) Units/L Troponin I (< 0.04) ng/mL Serum Total Protein 6.5 (6.4-8.9) g/dL Albumin 3.8 (3.5-5.7) g/dL Globulin 2.7 (2.4-3.5) g/dL Albumin/Globulin Ratio 1.4 (1.1-2.2) Urine Color Yellow (Yellow) Urine Clarity Clear (Clear) Urine pH 7.0 (5.0-8.0) pH Units Ur Specific [place] 1.013 (1.010-1.025) Urine Protein Negative (Neg-Trace) mg/dL Urine Glucose (UA) Normal (Normal) mg/dL Urine Ketones Negative (Negative) mg/dL Urine Blood Negative (Negative) Urine Nitrite Negative (Negative) Urine Bilirubin Negative (Negative) Urine Urobilinogen Normal (Normal) mg/dL Ur Leukocyte Esterase Negative (Negative) Ur Culture Indicated? NO (NO) 05/27/17 05/27/17 Range/Units 20:21 20:21 WBC (4.3-11.1) K/mcL RBC (3.82-4.97) M/mcL Hgb (11.5-15.4) g/dL Hct (35.3-44.9) % MCV (83.0-100.0) fL MCH (28.0-33.3) pg MCHC (31.6-35.5) g/dL RDW (11.5-14.5) % Plt Count (140-400) K/mcL MPV (9.4-12.4) fL Immature Gran % (0-4) % Seg Neutrophils % % Lymphocytes % % Monocytes % % Eosinophils % % Basophils % % Neutrophils # (1.6-8.9) K/mcL Lymphocytes # (0.6-4.6) K/mcL Monocytes # (0.0-1.3) K/mcL Eosinophils # (0.0-0.6) K/mcL Basophils # (0.0-0.2) K/mcL Sodium (136-145) mEq/L Potassium (3.5-5.1) mEq/L Chloride (98-107) mEq/L Carbon Dioxide (23-29) mEq/L BUN (6-20) mg/dL Creatinine (0.60-1.20) mg/dL Est GFR ( Amer) (> 60) Est GFR (Non-Af Amer) (> 60) BUN/Creatinine Ratio (6-26) Glucose (70-105) mg/dL Calculated Osmolality (280-300) Lactic Acid 0.9 (0.5-2.2) mmol/L Calcium (8.6-10.3) mg/dL Total Bilirubin (0.3-1.0) mg/dL AST (13-39) Units/L ALT (7-52) Units/L Alkaline Phosphatase (34-104) Units/L Troponin I < 0.03 (< 0.04) ng/mL Serum Total Protein (6.4-8.9) g/dL Albumin (3.5-5.7) g/dL Globulin (2.4-3.5) g/dL Albumin/Globulin Ratio (1.1-2.2) Urine Color (Yellow) Urine Clarity (Clear) Urine pH (5.0-8.0) pH Units Ur Specific [place] (1.010-1.025) Urine Protein (Neg-Trace) mg/dL Urine Glucose (UA) (Normal) mg/dL Urine Ketones (Negative) mg/dL Urine Blood (Negative) Urine Nitrite (Negative) Urine Bilirubin (Negative) Urine Urobilinogen (Normal) mg/dL Ur Leukocyte Esterase (Negative) Ur Culture Indicated? (NO) - Radiology Data Radiology results reviewed: Yes I reviewed the patient's radiology results. Chest X-Ray 05/27/17 17:52 IMPRESSION: No acute abnormality. D/ / Rosendo Goldstein MD / Rosendo Goldstein MD Interpreting Provider: Rosendo Goldstein MD Chest CTA 05/27/17 19:51 IMPRESSION: No convincing evidence for pulmonary embolism. Suboptimal evaluation of the distal segmental and subsegmental vessels as described above. No evidence for right heart strain or pulmonary infarction. D/ / Renato Carr MD / Renato Carr MD Interpreting Provider: Renato Carr MD Knee X-Ray 05/27/17 20:08 IMPRESSION: Diffuse soft tissue swelling new from the comparison. No acute abnormality of the knee otherwise including the arthroplasty, which appears normal. D/ / Kaiser Perera MD / Kaiser Perera MD Interpreting Provider: Kaiser Perera MD - EKG Data EKG attestation: Yes I reviewed and interpreted this EKG. EKG shows normal: Reports: sinus rhythm Rate: Reports: tachycardia (104 bpm [place] 178 QRS [address] segment elevations or depressions.)
[2017-05-27 20:27] LABS: Bilirubin,Urine Negative (Negative); Blood,Urine Negative (Negative); Clarity,Urine Clear (Clear); Color,Urine Yellow (Yellow); Glucose,Urine (UA) Normal (Normal); Ketones,Urine Negative (Negative); Leukocyte Esterase,Urine Negative (Negative); Nitrite,Urine Negative (Negative); Protein,Urine Negative (Neg-Trace); Specific Gravity,Urine 1.013 (1.010-1.025); Urobilinogen,Urine Normal (Normal)
[2017-05-27 20:38] LABS: Basophils % 0.4 %; Eosinophils # 0.8 K/mcL (0.0-0.6); Eosinophils % 9.7 %; Hemoglobin 8.5 g/dL (11.5-15.4); Immature Granulocytes % 0.6 % (0-4); Lymphocytes # 1.8 K/mcL (0.6-4.6); Lymphocytes % 21.3 %; Mean Corpuscular HGB Conc 32.7 g/dL (31.6-35.5); Mean Corpuscular Hemoglobin 30.1 pg (28.0-33.3); Mean Corpuscular Volume 92.2 fL (83.0-100.0); Mean Platelet Volume 9.1 fL (9.4-12.4); Monocytes # 0.6 K/mcL (0.0-1.3); Monocytes % 7.1 %; Neutrophils # 5.2 K/mcL (1.6-8.9); Platelet Count 399 K/mcL (140-400); Red Blood Count 2.82 M/mcL (3.82-4.97); Red Cell Distribution Width 12.8 % (11.5-14.5); Segmented Neutrophils % 60.9 %
[2017-05-27 20:47] LABS: Alanine Aminotransferase 18 Units/L (7-52); Albumin 3.8 g/dL (3.5-5.7); Albumin/Globulin Ratio 1.4 (1.1-2.2); Alkaline Phosphatase 132 Units/L (34-104); Aspartate Amino Transferase 19 Units/L (13-39); BUN/Creatinine Ratio 20 (6-26); Bilirubin,Total 0.4 mg/dL (0.3-1.0); Blood Urea Nitrogen 11 mg/dL (6-20); Carbon Dioxide 33 mEq/L (23-29); Chloride 99 mEq/L (98-107); Globulin 2.7 g/dL (2.4-3.5); Glucose 77 mg/dL (70-105); Osmolality,Calculated 276 (280-300); Sodium 134 mEq/L (136-145); Total Protein 6.5 g/dL (6.4-8.9); eGFR For African Americans > 60 (> 60); eGFR For Non-African Americans > 60 (> 60)
[2017-05-27] MEDS ORDERED: Vancomycin 1,000 MG in D5% in Water 250 ML IVPB ONE (21:08)
[2017-05-27] MEDS ORDERED: Piperacillin/Tazobactam 3.375 GM in D5% in Water (Mini-Bag+) 100 ML IVPB ONE (21:08)
[2017-05-27] MEDS ORDERED: Ondansetron 4 MG/2 ML VIAL IVP ONE (22:26)
[2017-05-27] MEDS ORDERED: Piperacillin/Tazobactam 3.375 GM in Water for inj. (sterile) 20 ML 20 ML IVPB ONE (23:30)
[2017-05-27] MEDS ORDERED: Naloxone 0.4 MG/ML INJ IVP PRN (23:41)
[2017-05-27] MEDS ORDERED: Vancomycin 1,250 MG in D5% in Water 250 ML IVPB SCH (23:45)
--- NOTE | 2017-05-27 23:59 | Internal Med History&Physical ---
Date of Encounter: 05/27/17 Time of Encounter: 22:00 Assessment and Plan (1) DVT prophylaxis Current visit: Yes Status: Acute Heparin SC (2) Cellulitis of right lower extremity Current visit: Yes Status: Acute Pt has skin redness/tenderness. Has leg swelling. S/P recent TKR, negative for DVT. - Consider cellulitis, will start vanco and zosyn. - Concern for knee joint infection, will consult orthopedics - Not meet criteria for sepsis now. (3) Status post right knee replacement Current visit: Yes Status: Acute Cont pt/OT and DVT prophylaxis (4) Acute blood loss anemia Current visit: No Status: Acute H/H low after surgery. Normal level prior to surgery, consider blood loss anemia. Stable after surgery, cont to monitor. (5) HTN (hypertension) Current visit: No Status: Chronic Cont home meds Qualifiers: Hypertension type: essential hypertension Qualified Code(s): I10 - Essential (primary) hypertension (6) Obesity (BMI 30.0-34.9) Current visit: No Status: Chronic Need lifestyle modification Internal Medicine - H&P: HPI Chief complaint: Right leg pain/swelling Admitted From: Home Plans for Post Hospital Care: Home History of present illness: Ms. Johnson is a 57 year old female with Hx of HTN, recent rt TKR, present to ER for right leg swelling and pain. Pt has Right TKR on last Friday (8days ago). She has Rt leg swelling, and burning sensation and pain. The skin of inner side of right thigh shows redness. Pt has low fever, mild nausea, no vomiting. Pt has mild nonproductive cough since yesterday with some SOB. Pt denies CP. Initially DVT or PE has suspected, US leg and CTA ordered, shows negative for DVT or PE. Pt was admitted for cellulitis. Past Med Surg Social Fam HX - Past Medical History Medical history: other Psychiatric history: depression - Past Surgical History Surgical History: non-contributory, herniorrhaphy, hysterectomy, orthopedic, other, other - Social History Smoking Status: Never smoker Smokeless Tobacco Status: No Alcohol use: none Drug use: none - Family History Mother Adopted: No Family Member Ethnicity: Non- Living Status: Still Living Hx Family Respiratory Disorders: Yes (COPD) Hx Family Autoimmune Disorders: Yes (lupus, RA) Father Adopted: No Living Status: Hx Family Cardiac Disorders: Yes (Heart disease) Internal Medicine - H&P: Meds Ibuprofen [Motrin] 600 mg PO Q6HR PRN 7 Days #28 tab 05/18/17 [Rx] Amitriptyline [Elavil] 50 mg PO HS 05/19/17 [History] Lansoprazole [Prevacid] 30 mg PO DAILY 05/19/17 [History] Lidocaine 1 patch TD DAILY 05/19/17 [History] Lisinopril/Hydrochlorothiazide [Zestoretic 20-12.5 mg Tablet] 1 tab PO DAILY [History] OxyCODONE ER (12 HR) [OxyCONTIN] 30 mg PO Q12HR 05/19/17 [History] Oxycodone HCl 15 mg PO Q4H PRN 05/19/17 [History] Venlafaxine HCl 100 mg PO TID 05/19/17 [History] diazePAM [Valium] 10 mg PO TID 05/19/17 [History] 3 Allergy/AdvReac Type Severity Reaction Status Date / Time fentanyl AdvReac Vomiting Verified 05/27/17 17:47 morphine AdvReac Vomiting Verified 05/27/17 17:47 All Systems PM: A 10-system review of systems was performed and is negative for pertinent findings except as documented above in the HPI. - Constitutional Vitals: Temp Pulse Resp BP Pulse Ox 99.6 F 99 18 104/75 98 05/27/17 17:47 05/27/17 22:24 05/27/17 22:24 05/27/17 22:24 05/27/17 22:24 General appearance: Present: A&O X 3, no acute distress, answers questions appropriately - Head Head exam: Present: atraumatic, normocephalic - Eye Eye exam: Present: PERRL, conjuntiva pink, sclera anicteric Pupils: Present: PERRL - Neck Neck exam general surgery: Present: supple, trachea midline. Absent: lymphadenopathy - Respiratory Respiratory exam: Present: CTAB. Absent: accessory muscle use, rales, rhonchi, wheezes - Cardiovascular Cardiovascular exam: Present: RRR, +S1, +S2. Absent: diastolic murmur, gallop, rubs, systolic murmur - GI/Abdominal GI/Abdominal exam: Present: normal bowel sounds, soft, no peritoneal signs. Absent: distended, tenderness - Extremities Exam Extremities exam: Present: warm, radial pulses palpable and symmetrical. Absent : calf tenderness, cyanotic, pedal edema Additional comments: Right leg swelling, redness on the inner side of right thigh, with tenderness. S /P TKR, incision site is clear - Neurological Exam Neurological exam: Present: CN II-XII intact, oriented X3, no focal deficits. Absent: pronater drift, facial droop, speech deficit - Skin Skin exam: Present: dry, intact Internal Med - H&P Results - Labs CBC & Chem 7: 05/27/17 20:21 05/27/17 20:21 - EKG Data -: EKG Interpreted by Myself EKG shows normal: sinus rhythm Rate: normal
[2017-05-28] MEDS: *HR* OxyCODONE Immed Rel 5 MG TABLET PO PRN ×2 (02:36→11:31)
[2017-05-28 05:46] LABS: Basophils % 0.5 %; Eosinophils # 0.8 K/mcL (0.0-0.6); Eosinophils % 9.1 %; Hematocrit 25.8 % (35.3-44.9); Hemoglobin 8.2 g/dL (11.5-15.4); Immature Granulocytes % 0.8 % (0-4); Lymphocytes # 2.2 K/mcL (0.6-4.6); Mean Corpuscular HGB Conc 31.8 g/dL (31.6-35.5); Mean Corpuscular Volume 94.5 fL (83.0-100.0); Mean Platelet Volume 9.3 fL (9.4-12.4); Monocytes # 0.7 K/mcL (0.0-1.3); Monocytes % 7.8 %; Neutrophils # 4.9 K/mcL (1.6-8.9); Platelet Count 429 K/mcL (140-400); Red Blood Count 2.73 M/mcL (3.82-4.97); Red Cell Distribution Width 12.9 % (11.5-14.5); Segmented Neutrophils % 56.8 %
[2017-05-28 06:04] LABS: BUN/Creatinine Ratio 13 (6-26); Blood Urea Nitrogen 8 mg/dL (6-20); Calcium 8.7 mg/dL (8.6-10.3); Carbon Dioxide 31 mEq/L (23-29); Chloride 100 mEq/L (98-107); Glucose 103 mg/dL (70-105); Magnesium 1.8 mg/dL (1.6-2.6); Osmolality,Calculated 277 (280-300); Potassium 4.2 mEq/L (3.5-5.1); Sodium 134 mEq/L (136-145); eGFR For African Americans > 60 (> 60); eGFR For Non-African Americans > 60 (> 60)
[2017-05-28] MEDS: *HR* Heparin 5,000 UNIT/ML VIAL SQ SCH ×2 (06:53→18:02)
[2017-05-28] MEDS: Ondansetron 4 MG/2 ML VIAL IVP SCH ×3 (06:54→18:02)
[2017-05-28] MEDS: Lisinopril-HCTZ 20-12.5mg TABLET PO SCH (07:59)
--- NOTE | 2017-05-28 08:32 | Orthopedic Consult Note ---
Date of Encounter: 05/28/17 Time of Encounter: 08:31 History of Present Illness HPI: Ms. Johnson is a 57 year old female Status post right total knee replacement one week ago. Patient admitted with swelling right leg. ER doctor reported Doppler negative. On exam swelling of right lower extremity appears to be expected for 1 week postop. Dressing and incision clean dry and intact. Slight erythema medial side. Neurovascular intact. Concern for cellulitis. Monitor response IV antibiotics next 24 hours. Past Med Surg Social Fam HX - Past Medical History Medical history: other Psychiatric history: depression - Past Surgical History Surgical History: non-contributory, herniorrhaphy, hysterectomy, orthopedic, other, other - Social History Smoking Status: Never smoker Smokeless Tobacco Status: No Alcohol use: none Drug use: none - Family History Mother Adopted: No Family Member Ethnicity: Non- Living Status: Still Living Hx Family Respiratory Disorders: Yes (COPD) Hx Family Autoimmune Disorders: Yes (lupus, RA) Father Adopted: No Living Status: Hx Family Cardiac Disorders: Yes (Heart disease) Medications and Allergies Ibuprofen [Motrin] 600 mg PO Q6HR PRN 7 Days #28 tab 05/18/17 [Rx] Amitriptyline [Elavil] 50 mg PO HS 05/19/17 [History] Lansoprazole [Prevacid] 30 mg PO DAILY 05/19/17 [History] Lidocaine 1 patch TD DAILY 05/19/17 [History] Lisinopril/Hydrochlorothiazide [Zestoretic 20-12.5 mg Tablet] 1 tab PO DAILY [History] OxyCODONE ER (12 HR) [OxyCONTIN] 30 mg PO Q12HR 05/19/17 [History] Oxycodone HCl 15 mg PO Q4H PRN 05/19/17 [History] Venlafaxine HCl 100 mg PO TID 05/19/17 [History] diazePAM [Valium] 10 mg PO TID 05/19/17 [History] 3 Allergy/AdvReac Type Severity Reaction Status Date / Time fentanyl AdvReac Vomiting Verified 05/27/17 17:47 morphine AdvReac Vomiting Verified 05/27/17 17:47 All Systems Reviewed: A 10-system review of systems was performed and is negative for pertinent findings except as documented above in the HPI. Physical Exam - Constitutional Vitals: Temp Pulse Resp BP Pulse Ox 98.5 F 84 18 119/68 98 05/28/17 06:48 05/28/17 06:48 05/28/17 06:48 05/28/17 06:48 05/28/17 06:48 Results - Labs Result Diagrams: 05/28/17 05:25 05/28/17 05:25 Labs: Abnormal lab results RBC 2.73 M/mcL (3.82-4.97) L 05/28/17 05:25 Hgb 8.2 g/dL (11.5-15.4) L 05/28/17 05:25 Hct 25.8 % (35.3-44.9) L 05/28/17 05:25 Plt Count 429 K/mcL (140-400) H 05/28/17 05:25 MPV 9.3 fL (9.4-12.4) L 05/28/17 05:25 Eosinophils # 0.8 K/mcL (0.0-0.6) H 05/28/17 05:25 Sodium 134 mEq/L (136-145) L 05/28/17 05:25 Carbon Dioxide 31 mEq/L (23-29) H 05/28/17 05:25 Calculated Osmolality 277 (280-300) L 05/28/17 05:25 Alkaline Phosphatase 132 Units/L (34-104) H 05/27/17 20:21 H & H 05/28/17 Range/Units 05:25 Hgb 8.2 L (11.5-15.4) g/dL Hct 25.8 L (35.3-44.9) % All other labs normal. Consult Discharge Plan - Plan Referrals: Uvaldo Roque DO [Primary Care Provider] -
[2017-05-28] MEDS: diazePAM 10 MG TABLET PO SCH ×3 (09:48→22:04)
[2017-05-28] MEDS: Vancomycin 1,000 MG in D5% in Water 250 ML IVPB SCH ×2 (09:49→22:04)
--- NOTE | 2017-05-28 09:59 | Internal Med Progress Note ---
Date of Encounter: 05/28/17 Time of Encounter: 09:30 - Assessment and plan (1) Cellulitis of right lower extremity Current Visit: Yes Status: Acute Assessment and plan: Currently on IV abx. Evaluation by orthopedics appreciated Will reassess tomorrow. (2) Acute blood loss anemia Current Visit: No Status: Acute Assessment and plan: No need for transfusion at this time. Monitoring H/H. (3) Status post right knee replacement Current Visit: Yes Status: Chronic (4) HTN (hypertension) Current Visit: No Status: Chronic Assessment and plan: Monitor and continue home medications. Qualifiers: Hypertension type: essential hypertension Qualified Code(s): I10 - Essential (primary) hypertension (5) Chronic pain Current Visit: No Status: Chronic Qualifiers: Chronic pain type: other chronic pain Qualified Code(s): G89.29 - Other chronic pain - Subjective Interval history: Ms Johnson is currently admitted for cellulitis of her R leg/knee. She is currently on IV abx. She remains moderate to high risk due to potential for worsening clinical status. Ms Johnson has been asking for IV pain meds. She is tolerating IV abx. Appreciate ortho input regarding further plans. No fever noted. No other new symptoms since admission. - Constitutional Vitals: Temp Pulse Resp BP Pulse Ox 98.5 F 84 18 119/68 98 05/28/17 06:48 05/28/17 06:48 05/28/17 06:48 05/28/17 06:48 05/28/17 06:48 General appearance: Present: A&O X 3, answers questions appropriately - Head Head exam: Present: atraumatic, normocephalic - Eye Eye exam: Present: EOMI, conjuntiva pink - ENT ENT exam: Present: mucous membranes dry - Respiratory Respiratory exam: Present: CTAB. Absent: rales, rhonchi, wheezes - Cardiovascular Cardiovascular exam: Present: RRR. Absent: tachycardia - GI/Abdominal GI/Abdominal exam: Present: soft. Absent: tenderness - Extremities Exam Extremities exam: Present: tenderness, warm Additional comments: Erythema noted on medial R leg near knee. - Neurological Exam Neurological exam: Present: alert, oriented X3 - Skin Skin exam: Present: erythema Internal Medicine: Result - Labs CBC & Chem 7: 05/28/17 05:25 05/28/17 05:25 Labs: Short CBC 05/28/17 Range/Units 05:25 WBC 8.6 (4.3-11.1) K/mcL Hgb 8.2 L (11.5-15.4) g/dL Hct 25.8 L (35.3-44.9) % Plt Count 429 H (140-400) K/mcL Neutrophils # 4.9 (1.6-8.9) K/mcL BMP 05/28/17 05:25 Sodium 134 L Potassium 4.2 Chloride 100 Carbon Dioxide 31 H BUN 8 Creatinine 0.60 Glucose 103 Calcium 8.7 Consult Discharge Plan - Plan Referrals: Uvaldo Roque DO [Primary Care Provider] -
--- NOTE | 2017-05-28 12:39 | Electrocardiograph Report ---
[place] [id number] Test Date: 2017-05-27 Pat Name: Suzanne Johnson Department: 104 Room: [facility] Gender: F [employer]: AM : 1960 Requested By: Alex Young Order Number: [id number] Reading MD: Milvia Conteh Measurements Intervals [place] Rate: 104 P: 57 MO: 178 QRS: 23 QRSD: 86 T: -4 QT: 310 QTc: 371 Interpretive Statements SINUS TACHYCARDIA ABNORMAL RHYTHM ECG Electronically Signed On 05-28-2017 12:38:13 EST by Milvia Conteh
[2017-05-28] MEDS ORDERED: 0.9 % Sodium Chloride 1,000 ML IVC SCH ×2 (16:25)
[2017-05-28] MEDS: *HR* OxyCODONE ER (12 HR) 10 MG TABLET PO SCH (18:02)
[2017-05-29] MEDS: Ondansetron 4 MG/2 ML VIAL IVP SCH ×4 (00:16→17:21)
[2017-05-29] MEDS: *HR* OxyCODONE Immed Rel 5 MG TABLET PO PRN ×2 (00:32→23:02)
[2017-05-29] MEDS: Acetaminophen 325 MG TABLET PO PRN (03:05)
[2017-05-29 03:37] LABS: Hematocrit 24.5 % (35.3-44.9); Hemoglobin 7.9 g/dL (11.5-15.4); Mean Corpuscular HGB Conc 32.2 g/dL (31.6-35.5); Mean Corpuscular Volume 93.2 fL (83.0-100.0); Mean Platelet Volume 9.3 fL (9.4-12.4); Platelet Count 413 K/mcL (140-400); Red Blood Count 2.63 M/mcL (3.82-4.97); Red Cell Distribution Width 13.2 % (11.5-14.5)
[2017-05-29 03:57] LABS: BUN/Creatinine Ratio 16 (6-26); Blood Urea Nitrogen 9 mg/dL (6-20); Calcium 8.4 mg/dL (8.6-10.3); Carbon Dioxide 29 mEq/L (23-29); Chloride 101 mEq/L (98-107); Glucose 96 mg/dL (70-105); Magnesium 1.8 mg/dL (1.6-2.6); Osmolality,Calculated 277 (280-300); Sodium 134 mEq/L (136-145); eGFR For African Americans > 60 (> 60); eGFR For Non-African Americans > 60 (> 60)
[2017-05-29] MEDS: *HR* Heparin 5,000 UNIT/ML VIAL SQ SCH ×2 (06:28→17:21)
[2017-05-29] MEDS: *HR* OxyCODONE ER (12 HR) 10 MG TABLET PO SCH ×2 (06:28→17:19)
--- NOTE | 2017-05-29 08:09 | Orthopedics Progress Note ---
Date of Encounter: 05/29/17 Time of Encounter: 08:06 Subjective Interval history: Patient seen this morning feeling better erythema right lower extremity resolved. Patient with trending down of her hemoglobin. The right lower extremity is not swollen to indicate that this is the source of where the blood is accumulating. Patient will be transfused 2 units packed red blood cells recommend workup for additional source of anemia. Recommended discharge on oral antibiotics Bactrim DS 1 twice a day. Objective Vital signs: Vital Signs Temp Pulse Resp BP Pulse Ox 05/29/17 07:17 98.0 F 68 16 108/66 99 05/28/17 23:48 97.4 F L 83 17 112/77 97 05/28/17 20:29 98.1 F 106 18 128/78 98 05/28/17 20:00 98 05/28/17 14:30 98.5 F 73 16 121/68 95 05/28/17 10:15 98.3 F 76 18 114/67 96 Intake and Output 05/28/17 05/29/17 05/29/17 23:59 07:59 15:59 Intake Total 2300 / 2300 100 / 100 Output Total 1400 / 1400 700 / 700 Balance 900 / 900 -600 / -600 Intake: IV Fluids 100 / 100 100 / 100 Zosyn 3.375 GM In 0.9 % Sodium 100 / 100 100 / 100 Chloride 100 ML @ 25 mls/hr IVPB Q8HR [facility] Rx#:[id number] Oral 2200 / 2200 Output: Urine 1400 / 1400 700 / 700 Other: Stool Size Large Stool Consistency formed Stool Color Brown # Voids 1 # Bowel Movements 1 Weight 90.1 kg Patient Weight 05/29/17 23:59 Weight 90.1 kg - Labs CBC & BMP: 05/29/17 02:54 05/29/17 02:54 Labs: Abnormal lab results RBC 2.63 M/mcL (3.82-4.97) L 05/29/17 02:54 Hgb 7.9 g/dL (11.5-15.4) L 05/29/17 02:54 Hct 24.5 % (35.3-44.9) L 05/29/17 02:54 Plt Count 413 K/mcL (140-400) H 05/29/17 02:54 MPV 9.3 fL (9.4-12.4) L 05/29/17 02:54 Eosinophils # 0.8 K/mcL (0.0-0.6) H 05/28/17 05:25 Sodium 134 mEq/L (136-145) L 05/29/17 02:54 Creatinine 0.57 mg/dL (0.60-1.20) L 05/29/17 02:54 Calculated Osmolality 277 (280-300) L 05/29/17 02:54 Calcium 8.4 mg/dL (8.6-10.3) L 05/29/17 02:54 Alkaline Phosphatase 132 Units/L (34-104) H 05/27/17 20:21 Consult Discharge Plan - Plan Referrals: Uvaldo Roque DO [Primary Care Provider] -
[2017-05-29] MEDS ORDERED: 0.9 % Sodium Chloride 250 ML ONE ×2 (08:51→12:58)
[2017-05-29] MEDS: Lisinopril-HCTZ 20-12.5mg TABLET PO SCH (09:02)
[2017-05-29] MEDS: diazePAM 10 MG TABLET PO SCH ×3 (09:02→20:12)
[2017-05-29] MEDS: *HR* HYDROcodone/Acet 5/325 mg TABLET PO PRN ×2 (09:02→15:37)
--- NOTE | 2017-05-29 10:47 | Internal Med Progress Note ---
Date of Encounter: 05/29/17 Time of Encounter: 09:45 - Assessment and plan (1) Cellulitis of right lower extremity Current Visit: Yes Status: Acute Assessment and plan: Slowly improving. Continue abx as ordered at this time. Anticipate d/c tomorrow on PO abx. (2) Acute blood loss anemia Current Visit: No Status: Acute Assessment and plan: Blood transfusion ordered this AM. Suspect this is related to prior surgery a week ago and resultant anemia. Will check stool guiac and iron studies. If improved tomorrow anticipate will continue any further work up as outpatient. (3) Status post right knee replacement Current Visit: Yes Status: Chronic (4) HTN (hypertension) Current Visit: No Status: Chronic Assessment and plan: Monitor and continue home medications. Qualifiers: Hypertension type: essential hypertension Qualified Code(s): I10 - Essential (primary) hypertension (5) Chronic pain Current Visit: No Status: Chronic Assessment and plan: Chronic issue. Qualifiers: Chronic pain type: other chronic pain Qualified Code(s): G89.29 - Other chronic pain - Subjective Interval history: Ms Johnson is currently admitted for cellulitis of her R leg/knee. She is currently on IV abx. She remains moderate to high risk due to potential for worsening clinical status. Ms Johnson is resting comfortably in bed. No fever or chills. Feels her knee is improving. H/H has slowly decreased and blood transfusion ordered by orthopedics. No prior hx of anemia or GI bleed. No abd pain or dark stools. - Constitutional Vitals: Temp Pulse Resp BP Pulse Ox 98.1 F 87 16 108/66 97 05/29/17 09:33 05/29/17 09:33 05/29/17 09:33 05/29/17 09:33 05/29/17 09:33 General appearance: Present: A&O X 3, answers questions appropriately - Head Head exam: Present: atraumatic, normocephalic - Eye Eye exam: Present: EOMI, conjuntiva pink - ENT ENT exam: Present: mucous membranes moist - Respiratory Respiratory exam: Present: CTAB. Absent: rales, rhonchi, wheezes - Cardiovascular Cardiovascular exam: Present: RRR. Absent: systolic murmur, tachycardia - GI/Abdominal GI/Abdominal exam: Present: soft. Absent: tenderness - Extremities Exam Extremities exam: Present: tenderness, warm - Neurological Exam Neurological exam: Present: alert, oriented X3, no focal deficits - Skin Skin exam: Present: erythema Additional comments: Erythema near R knee is improving. Internal Medicine: Result - Labs CBC & Chem 7: 05/29/17 02:54 05/29/17 02:54 Labs: Short CBC 05/29/17 Range/Units 02:54 WBC 7.7 (4.3-11.1) K/mcL Hgb 7.9 L (11.5-15.4) g/dL Hct 24.5 L (35.3-44.9) % Plt Count 413 H (140-400) K/mcL BMP 05/29/17 02:54 Sodium 134 L Potassium 4.0 Chloride 101 Carbon Dioxide 29 BUN 9 Creatinine 0.57 L Glucose 96 Calcium 8.4 L Consult Discharge Plan - Plan Referrals: Pamela Rabago PAC [Physician Tip Tester] - 06/03/17 10:45 am Dada Connolly MD [Partnered Physician] - 06/18/17 5:10 pm Uvaldo Roque DO [Primary Care Provider] - 07/30/17 10:30 am
[2017-05-29 15:26] LABS: % Iron Saturation 49 % (15-50); Iron 101 mcg/dL (50-170); Transferrin 148 mg/dL (203-362)
[2017-05-29] MEDS: Vancomycin 1,000 MG in D5% in Water 250 ML IVPB SCH (17:19)
[2017-05-30] MEDS: Ondansetron 4 MG/2 ML VIAL IVP SCH ×2 (01:04→05:39)
[2017-05-30] MEDS: Acetaminophen 325 MG TABLET PO PRN (03:37)
[2017-05-30 04:11] LABS: Mean Corpuscular Volume 90.9 fL (83.0-100.0); Mean Platelet Volume 9.3 fL (9.4-12.4); Platelet Count 408 K/mcL (140-400); Red Cell Distribution Width 13.6 % (11.5-14.5)
[2017-05-30 04:12] LABS: Hemoglobin 9.9 g/dL (11.5-15.4)
[2017-05-30 04:40] LABS: BUN/Creatinine Ratio 13 (6-26); Blood Urea Nitrogen 9 mg/dL (6-20); Calcium 8.9 mg/dL (8.6-10.3); Carbon Dioxide 29 mEq/L (23-29); Chloride 102 mEq/L (98-107); Glucose 99 mg/dL (70-105); Osmolality,Calculated 281 (280-300); Potassium 3.8 mEq/L (3.5-5.1); Sodium 136 mEq/L (136-145); eGFR For African Americans > 60 (> 60); eGFR For Non-African Americans > 60 (> 60)
[2017-05-30] MEDS: *HR* OxyCODONE ER (12 HR) 10 MG TABLET PO SCH (05:36)
[2017-05-30] MEDS: *HR* Heparin 5,000 UNIT/ML VIAL SQ SCH (05:39)
[2017-05-30] MEDS: Vancomycin 1,000 MG in D5% in Water 250 ML IVPB SCH (05:39)
--- NOTE | 2017-05-30 06:44 | Orthopedics Progress Note ---
Date of Encounter: 05/30/17 Time of Encounter: 06:43 Subjective Interval history: Patient seen this morning feeling better Hematocrit 30 We will begin CPM right lower extremity We will write a prescription for Bactrim on discharge. Objective Vital signs: Vital Signs Temp Pulse Resp BP Pulse Ox 05/30/17 05:29 98.0 F 88 14 103/68 95 05/30/17 01:09 99.0 F 81 18 117/78 97 05/29/17 20:29 94 05/29/17 20:07 97.9 F 76 16 121/75 94 05/29/17 16:35 98.4 F 68 17 91/65 95 05/29/17 13:28 98.6 F 79 14 104/66 96 05/29/17 13:03 98.1 F 68 16 102/68 98 05/29/17 12:00 98.1 F 68 16 102/68 98 05/29/17 09:33 98.1 F 87 16 108/66 97 05/29/17 09:06 98.1 F 102 16 110/59 97 05/29/17 09:00 97 05/29/17 07:17 98.0 F 68 16 108/66 99 Intake and Output 05/29/17 05/29/17 05/30/17 15:59 23:59 07:59 Intake Total 1282 / 1282 725 / 725 Output Total 1350 / 1350 500 / 500 400 / 400 Balance -68 / -68 225 / 225 -400 / -400 Intake: IV Fluids 982 / 982 350 / 350 0.9 % Sodium Chloride 250 ML @ 0 / 0 0 mls/hr .ROUTE .[facility] Rx #:[id number] 0.9 % Sodium Chloride 1,000 ML 732 / 732 @ 50 mls/hr IVC .Q20H [facility] Rx#: [id number] Zosyn 3.375 GM In 0.9 % Sodium 100 / 100 Chloride 100 ML @ 25 mls/hr IVPB Q8HR [facility] Rx#:[id number] Vancocin 1,000 MG In Dextrose 5 250 / 250 250 / 250 % 250 ML @ 167 mls/hr IVPB Q12H [facility] Rx#:[id number] Blood Product 300 / 300 375 / 375 Rbcs Leuko Poor As-1 Unit 300 / 300 [id number] Rbcs Leuko Poor As-1 Unit 0 / 0 375 / 375 [id number] Output: Urine 1350 / 1350 500 / 500 400 / 400 Other: Meal Breakfast Dinner Percent of Meal Consumed 100% 25% Stool Size Moderate Stool Consistency formed Stool Characteristics Normal for Patient Stool Color Brown - Labs CBC & BMP: 05/30/17 03:20 05/30/17 03:20 Labs: Abnormal lab results RBC 3.30 M/mcL (3.82-4.97) L 05/30/17 03:20 Hgb 9.9 g/dL (11.5-15.4) L D 05/30/17 03:20 Hct 30.0 % (35.3-44.9) L 05/30/17 03:20 Plt Count 408 K/mcL (140-400) H 05/30/17 03:20 MPV 9.3 fL (9.4-12.4) L 05/30/17 03:20 Eosinophils # 0.8 K/mcL (0.0-0.6) H 05/28/17 05:25 Transferrin 148 mg/dL (203-362) L 05/29/17 08:26 Alkaline Phosphatase 132 Units/L (34-104) H 05/27/17 20:21 Consult Discharge Plan - Plan Referrals: Pamela Rabago PAC [Physician Soap Worker] - 06/03/17 10:45 am Dada Connolly MD [Partnered Physician] - 06/18/17 5:10 pm Uvaldo Roque DO [Primary Care Provider] - 07/30/17 10:30 am
[2017-05-30 07:27] VITALS: BP 114/78
[2017-05-30] MEDS: diazePAM 10 MG TABLET PO SCH (07:36)
--- NOTE | 2017-05-30 07:57 | Discharge Summary ---
Date of Encounter: 05/30/17 Time of Encounter: 08:33 - Discharge Diagnosis (1) Cellulitis of right lower extremity Priority: Primary Status: Acute (2) Acute blood loss anemia Priority: Secondary Status: Acute (3) Status post right knee replacement Priority: Secondary Status: Chronic (4) HTN (hypertension) Priority: Secondary Status: Chronic Qualifiers: Hypertension type: essential hypertension Qualified Code(s): I10 - Essential (primary) hypertension (5) Chronic pain Priority: Secondary Status: Chronic Qualifiers: Chronic pain type: other chronic pain Qualified Code(s): G89.29 - Other chronic pain - Discharge Medications Prescriptions: Sulfamethoxazole/Trimeth DS [Bactrim DS] 1 each PO BID #20 tablet Home Medications: Ibuprofen [Motrin] 600 mg PO Q6HR PRN 7 Days #28 tab 05/18/17 [Rx] Lansoprazole [Prevacid] 30 mg PO DAILY 05/19/17 [History] Lidocaine 1 patch TD DAILY 05/19/17 [History] Lisinopril/Hydrochlorothiazide [Zestoretic 20-12.5 mg Tablet] 1 tab PO DAILY [History] OxyCODONE ER (12 HR) [OxyCONTIN] 30 mg PO Q12HR 05/19/17 [History] Oxycodone HCl 15 mg PO Q4H PRN 05/19/17 [History] Venlafaxine HCl 100 mg PO TID 05/19/17 [History] diazePAM [Valium] 10 mg PO TID 05/19/17 [History] GuaiFENesin/Dextromethorphan [Robitussin/Dm] 10 ml PO Q6HR PRN udc 05/30/17 [Rx ] Sulfamethoxazole/Trimeth DS [Bactrim DS] 1 each PO BID #20 tablet 05/30/17 [Rx] Allergies/Adverse Reactions: 3 Allergy/AdvReac Type Severity Reaction Status Date / Time fentanyl AdvReac Vomiting Verified 05/27/17 17:47 morphine AdvReac Vomiting Verified 05/27/17 17:47 Date of admission: 05/27/17 23:41 Primary care physician: Uvaldo Roque, Consults: Mohsen Discharging clinician: Luis Sahu Anticipated date of discharge: 05/30/17 - Patient Status Disposition: Home Health Service Condition: Fair Functional capacity at discharge: independent ambulation (Prior functional level ) Overall status at discharge: patient is progressing back to baseline - Discharge Instructions Follow Up With: Pamela Rabago PAC [Physician Production Pattern Maker] - 06/03/17 10:45 am Dada Connolly MD [Partnered Physician] - 06/18/17 5:10 pm Uvaldo Roque DO [Primary Care Provider] - 07/30/17 10:30 am - Diet and Activity Activity: increase activity as tolerated Diet: advance to your usual diet Hospital course: Ms. Johnson is a 57 year old female with recent R TKA presented to ED with complaints of erythema and warmth to her R knee area. She was evaluated and subsequently admitted for concern for cellulitis. Ms Johnson was admitted to med surg. She was started on IV abx for presumed cellulitis of her R knee area. She was evaluated by orthopedics and IV abx continued. Due to anemia she was given 2 units PRBCs. Further workup including stool guiac and iron studies were negative. Anemia most likely related to recent surgery. On 05/30 she was feeling well. Her H/H improved with blood. Cellulitis has improved. She is afebrile and felt ready for discharge home. - Time Spent with Patient Total time spent providing and/or coordinating discharge services: 42min - Constitutional Vitals: Temp Pulse Resp BP Pulse Ox 98.1 F 86 16 114/78 98 05/30/17 07:25 05/30/17 07:25 05/30/17 07:25 05/30/17 07:25 05/30/17 07:25 General appearance: Present: A&O X 3, answers questions appropriately - Head Head exam: Present: normocephalic - Eye Eye exam: Present: EOMI, conjuntiva pink - ENT ENT exam: Present: mucous membranes moist - Respiratory Respiratory exam: Present: CTAB. Absent: rales, rhonchi, wheezes - Cardiovascular Cardiovascular exam: Present: RRR. Absent: systolic murmur, tachycardia - GI/Abdominal GI/Abdominal exam: Present: soft. Absent: tenderness - Extremities Exam Extremities exam: Present: tenderness, warm - Neurological Exam Neurological exam: Present: alert, oriented X3 - Skin Skin exam: Present: warm
--- NOTE | 2017-05-30 08:41 | Physician Discharge Referral ---
Home Health/Hosp Referral Info Transfer to: Home Health Attending Provider: Luis Sahu DO Provider in Charge Post Discharge: PCP - Diagnosis (1) Cellulitis of right lower extremity Priority: Primary Status: Acute (2) Acute blood loss anemia Priority: Secondary Status: Acute (3) Status post right knee replacement Priority: Secondary Status: Chronic (4) HTN (hypertension) Priority: Secondary Status: Chronic (5) Chronic pain Priority: Secondary Status: Chronic - Respiratory Orders None Smoking Cessation: Smoking cessation has been advised. For more information, call the [place] Tobacco Quit Line at 7-536-GPGF-NOW. - Diet/Nutrition Diet/Nutrition Orders: No Added Salt (DEVIKA) - Activity Activity Orders: Walker - Services Needed Following services are medically necessary services: Nursing, Physical Therapy, Occupational Therapy - Transfer Medications Prescriptions: Sulfamethoxazole/Trimeth DS [Bactrim DS] 1 each PO BID #20 tablet Home Medications: Ibuprofen [Motrin] 600 mg PO Q6HR PRN 7 Days #28 tab 05/18/17 [Rx] Lansoprazole [Prevacid] 30 mg PO DAILY 05/19/17 [History] Lidocaine 1 patch TD DAILY 05/19/17 [History] Lisinopril/Hydrochlorothiazide [Zestoretic 20-12.5 mg Tablet] 1 tab PO DAILY [History] OxyCODONE ER (12 HR) [OxyCONTIN] 30 mg PO Q12HR 05/19/17 [History] Oxycodone HCl 15 mg PO Q4H PRN 05/19/17 [History] Venlafaxine HCl 100 mg PO TID 05/19/17 [History] diazePAM [Valium] 10 mg PO TID 05/19/17 [History] GuaiFENesin/Dextromethorphan [Robitussin/Dm] 10 ml PO Q6HR PRN udc 05/30/17 [Rx ] Sulfamethoxazole/Trimeth DS [Bactrim DS] 1 each PO BID #20 tablet 05/30/17 [Rx] Allergies/Adverse Reactions: 3 Allergy/AdvReac Type Severity Reaction Status Date / Time fentanyl AdvReac Vomiting Verified 05/27/17 17:47 morphine AdvReac Vomiting Verified 05/27/17 17:47 Certification: Further, I certify that my clinical findings support that this patient is homebound (i.e. absences from home require considerable and taxing effort and are for medical reasons or spiritism services or infrequently or short duration when for other reasons) because: Homebound Reason: Patient requires assistance of a person or device to safely leave home, Post-surgery restriction and or conditions limit ability to leave home Attestation: My signature below is to certify that this patient is under my care and that I, or nurse practitioner, or a physician's administrative sales assistant working with me, has a face-to -face encounter with this patient.
[2017-05-30] MEDS ORDERED: FLUARIX QUAD 2017-18 36MOS UP/PF 0.5 ML SYRINGE IM ONE (09:47)
[2017-05-30] MEDS: Lisinopril-HCTZ 20-12.5mg TABLET PO SCH (10:36)
[2017-05-30] MEDS: *HR* HYDROcodone/Acet 5/325 mg TABLET PO PRN (10:39)
[2017-05-30] MEDS ORDERED: Aminoglycoside Consult 1 EACH MC ONE (11:19)
== END 2017-05-30 11:20 | disposition home health service (06) | DRG 383 ==
LOC: 3NENU 17:30 → EMEROO 17:30 → SUATTDRO 23:41 → 3NENU 23:56
PROVIDERS: ADMIT Internal Medicine; ATTEND Internal Medicine

== ENCOUNTER 2021-10-21 12:32 | Inpatient (IN) ==
[2021-10-21 14:17] LABS: Basophils % 0.1 %; Eosinophils # 0.2 K/mcL (0.0-0.6); Eosinophils % 1.1 %; Hematocrit 35.3 % (35.3-44.9); Immature Granulocytes % 1.3 % (0-4); Lymphocytes # 0.4 K/mcL (0.6-4.6); Lymphocytes % 2.2 %; Mean Corpuscular Hemoglobin 30.6 pg (28.0-33.3); Mean Corpuscular Volume 90.1 fL (83.0-100.0); Mean Platelet Volume 10.3 fL (9.4-12.4); Monocytes # 0.4 K/mcL (0.0-1.3); Monocytes % 2.6 %; Neutrophils # 15.4 K/mcL (1.6-8.9); Platelet Count 222 K/mcL (140-400); Red Blood Count 3.92 M/mcL (3.82-4.97); Red Cell Distribution Width 12.5 % (11.5-14.5); Segmented Neutrophils % 92.7 %; White Blood Count 16.6 K/mcL (4.3-11.1)
[2021-10-21 14:32] LABS: Bacteria,Urine Few per hpf (None-Few); Bilirubin,Urine Small (Negative); Blood,Urine Small (Negative); Clarity,Urine Ex.Turbid (Clear); Color,Urine Dark-Brown (Yellow); Glucose,Urine (UA) Normal (Normal); Hyaline Casts,Urine Few per lpf (None Seen); Ketones,Urine Negative (Negative); Leukocyte Esterase,Urine Large (Negative); Mucus,Urine Few per lpf (None-Few); Nitrite,Urine Positive (Negative); Protein,Urine 200 mg/dL (Neg-Trace); Specific Gravity,Urine 1.023 (1.010-1.025); Squamous Epithelial Cell,Urine Moderate per hpf (None-Few); WBC,Urine 50-100 per hpf (0-3)
[2021-10-21 14:37] LABS: Alanine Aminotransferase 15 Units/L (7-52); Albumin 3.6 g/dL (3.5-5.7); Alkaline Phosphatase 130 Units/L (34-104); Aspartate Amino Transferase 18 Units/L (13-39); BUN/Creatinine Ratio 17 (6-26); Bilirubin,Indirect 0.3 mg/dL (0.0-1.0); Bilirubin,Total 0.3 mg/dL (0.3-1.0); Blood Urea Nitrogen 43 mg/dL (6-20); Calcium 9.1 mg/dL (8.6-10.3); Carbon Dioxide 30 mEq/L (23-29); Chloride 90 mEq/L (98-107); Globulin 3.6 g/dL (2.4-3.5); Glucose 146 mg/dL (70-105); Lipase 11 Units/L (11-82); Osmolality,Calculated 281 (280-300); Potassium 3.6 mEq/L (3.5-5.1); Sodium 129 mEq/L (136-145); Total Protein 7.2 g/dL (6.4-8.9); eGFR For African Americans 23 (> 60); eGFR For Non-African Americans 19 (> 60)
[2021-10-21] MEDS ORDERED: cefTRIAXone 1,000 MG in 0.9 % Sodium Chloride 10 ML IVP ONE (14:37)
[2021-10-21] MEDS ORDERED: Prochlorperazine 10 MG/2 ML VIAL IVP ONE (14:38)
[2021-10-21] MEDS ORDERED: Iopamidol - 370 500 ML MLS IVP ONE (14:38)
[2021-10-21] MEDS ORDERED: Azithromycin 500 MG in 0.9 % Sodium Chloride 250 ML IVPB ONE (14:45)
[2021-10-21] MEDS: 0.9 % Sodium Chloride 1,000 ML IVC SCH ×4 (14:49→18:50)
[2021-10-21 14:58] LABS: Prothrombin Time 11.5 Seconds (9.4-12.1)
[2021-10-21 15:00] LABS: Magnesium 2.6 mg/dL (1.6-2.6); Phosphorous 2.9 mg/dL (2.7-4.5)
[2021-10-21 15:01] LABS: Activated Partial Thrombo Time 34.7 Seconds (26.0-36.0)
[2021-10-21 15:01] LABS: Troponin I < 0.03 ng/mL (< 0.04)
[2021-10-21 16:10] LABS: Influenza A PCR Negative (Negative); Influenza B PCR Negative (Negative); Resp. Syncytial Virus PCR Negative (Negative)
[2021-10-21 16:38] LABS: SARS-CoV-2 by PCR (In House) Negative (Negative)
[2021-10-21] MEDS ORDERED: Naloxone 0.4 MG/ML INJ IVP PRN (17:17)
[2021-10-21] MEDS ORDERED: Ondansetron 4 MG/2 ML VIAL IVP PRN (17:17)
[2021-10-21] MEDS ORDERED: D5% in Water 1,000 ML IVC PRN (17:39)
[2021-10-21] MEDS ORDERED: Dextrose Gel 15 GM/37.5 ML TUBE PO PRN ×2 (17:39)
[2021-10-21] MEDS ORDERED: *HR* Dextrose 50 % in Water (Syg) 50 ML SYRINGE IVP PRN (17:39)
[2021-10-21] MEDS ORDERED: polyethylene glycoL 3350 17 GM POWD.PACK PO PRN (18:03)
[2021-10-21] MEDS: Insulin LISPRO 300 UNITS/3 ML VIAL SUBQ SCH (18:26)
[2021-10-21] MEDS: *HR* Heparin 5,000 UNIT/ML VIAL SQ SCH (18:46)
[2021-10-21 18:56] LABS: Estimated Average Glucose 111 mg/dl; Hemoglobin A1C 5.5 %
[2021-10-21] MEDS: Ipratropium/Albuterol Neb 3 ML IH SCH (20:49)
[2021-10-21] MEDS: Acetaminophen 325 MG TABLET PO PRN (21:24)
[2021-10-21] MEDS: Celecoxib 200 MG CAPSULE PO SCH (21:56)
[2021-10-22] MEDS: *HR* OxyCODONE/APAP 10/325 TABLET PO SCH ×5 (02:27→23:35)
[2021-10-22] MEDS: Insulin LISPRO 300 UNITS/3 ML VIAL SUBQ SCH ×4 (02:27→17:09)
[2021-10-22] MEDS: Ipratropium/Albuterol Neb 3 ML IH SCH ×4 (03:44→22:17)
[2021-10-22] MEDS: 0.9 % Sodium Chloride 1,000 ML IVC SCH (04:48)
[2021-10-22 06:37] LABS: Basophils % 0.1 %; Eosinophils # 0.3 K/mcL (0.0-0.6); Eosinophils % 1.9 %; Hematocrit 27.5 % (35.3-44.9); Immature Granulocytes % 0.6 % (0-4); Lymphocytes # 0.6 K/mcL (0.6-4.6); Lymphocytes % 4.5 %; Mean Corpuscular HGB Conc 32.4 g/dL (31.6-35.5); Mean Corpuscular Hemoglobin 30.1 pg (28.0-33.3); Mean Corpuscular Volume 92.9 fL (83.0-100.0); Mean Platelet Volume 10.6 fL (9.4-12.4); Monocytes # 0.7 K/mcL (0.0-1.3); Monocytes % 4.7 %; Neutrophils # 12.4 K/mcL (1.6-8.9); Platelet Count 186 K/mcL (140-400); Red Blood Count 2.96 M/mcL (3.82-4.97); Red Cell Distribution Width 12.7 % (11.5-14.5); Segmented Neutrophils % 88.2 %; White Blood Count 14.1 K/mcL (4.3-11.1)
[2021-10-22 06:38] LABS: Hemoglobin 8.9 g/dL (11.5-15.4)
[2021-10-22 06:50] LABS: Calcium 7.4 mg/dL (8.6-10.3); Potassium 3.7 mEq/L (3.5-5.1)
[2021-10-22] MEDS: *HR* Heparin 5,000 UNIT/ML VIAL SQ SCH ×2 (06:54→17:10)
[2021-10-22] MEDS ORDERED: Piperacillin/Tazobactam 3.375 GM in 0.9 % Sodium Chloride Mini Bag 100 ML IVPB SCH (08:00)
[2021-10-22 08:13] LABS: CTX-M ESBL Gene Not Detected (Not Detect); IMP Carbapenem-Resist Gene Not Detected (Not Detect); NDM Carbapenem-Resist Gene Not Detected (Not Detect); OXA-48-like Carbap-Resist Gene Not Detected (Not Detect); VIM Carbapenem-Resist Gene Not Detected (Not Detect); blaKPC Carbapenem-Resist Gene Not Detected (Not Detect); mcr-1 Colistin-Resist Gene Not Detected (Not Detect)
[2021-10-22 08:14] LABS: A.calcoaceticus-baumannii cplx Not Detected (Not Detect); Bacteroides fragilis by PCR Not Detected (Not Detect); Candida albicans by PCR Not Detected (Not Detect); Candida auris by PCR Not Detected (Not Detect); Candida glabrata by PCR Not Detected (Not Detect); Candida krusei by PCR Not Detected (Not Detect); Candida parapsilosis by PCR Not Detected (Not Detect); Candida tropicalis by PCR Not Detected (Not Detect); Crypto. neoformans/gattii PCR Not Detected (Not Detect); Enterobacter cloacae Cmplx PCR Not Detected (Not Detect); Enterococcus faecalis by PCR Not Detected (Not Detect); Enterococcus faecium by PCR Not Detected (Not Detect); Escherichia coli by PCR DETECTED (Not Detect); Klebs. pneumoniae group by PCR Not Detected (Not Detect); Klebsiella aerogenes by PCR Not Detected (Not Detect); Klebsiella oxytoca by PCR Not Detected (Not Detect); Proteus by PCR Not Detected (Not Detect); Pseudomonas aeruginosa by PCR Not Detected (Not Detect); Salmonella species by PCR Not Detected (Not Detect); Serratia marcescens by PCR Not Detected (Not Detect); Staph epidermidis by PCR Not Detected (Not Detect); Staph lugdunensis by PCR Not Detected (Not Detect); Staphylococcus aureus by PCR Not Detected (Not Detect); Staphylococcus by PCR Not Detected (Not Detect); Stenotrophomonas maltophilia Not Detected (Not Detect); Streptococcus agalactiae(B)PCR Not Detected (Not Detect); Streptococcus by PCR Not Detected (Not Detect); Streptococcus pneumoniae PCR Not Detected (Not Detect); Streptococcus pyogenes (A) PCR Not Detected (Not Detect)
[2021-10-22] MEDS: Celecoxib 200 MG CAPSULE PO SCH (08:55)
[2021-10-22] MEDS: Sennosides/Docusate Sodium TABLET PO SCH (08:55)
[2021-10-22] MEDS: cefTRIAXone 2,000 MG in 0.9 % Sodium Chloride 20 ML IVP SCH (08:56)
[2021-10-22] MEDS ORDERED: Pantoprazole 40 MG VIAL IVP SCH (09:00)
[2021-10-22] MEDS ORDERED: diazePAM 5 MG TABLET PO PRN (14:45)
[2021-10-22] MEDS ORDERED: cefTRIAXone 1,000 MG in 0.9 % Sodium Chloride 10 ML IVP SCH (15:00)
[2021-10-22] MEDS: Azithromycin 500 MG in 0.9 % Sodium Chloride 250 ML IVPB SCH (15:06)
[2021-10-22] MEDS ORDERED: 0.9 % Sodium Chloride 1,000 ML IVC SCH ×2 (17:30)
[2021-10-22] MEDS ORDERED: Insulin LISPRO 300 UNITS/3 ML VIAL SUBQ SCH (21:00)
[2021-10-22] MEDS: Melatonin 3 MG TABLET PO SCH (22:01)
[2021-10-22] MEDS ORDERED: *HR* OxyCODONE Immed Rel 15 MG TABLET PO PRN (23:34)
[2021-10-23 02:54] LABS: Basophils % 0.1 %; Eosinophils # 0.4 K/mcL (0.0-0.6); Hematocrit 27.2 % (35.3-44.9); Hemoglobin 8.8 g/dL (11.5-15.4); Immature Granulocytes % 0.3 % (0-4); Lymphocytes # 0.8 K/mcL (0.6-4.6); Lymphocytes % 8.7 %; Mean Corpuscular HGB Conc 32.4 g/dL (31.6-35.5); Mean Corpuscular Hemoglobin 29.9 pg (28.0-33.3); Mean Corpuscular Volume 92.5 fL (83.0-100.0); Monocytes # 0.5 K/mcL (0.0-1.3); Monocytes % 5.6 %; Neutrophils # 6.9 K/mcL (1.6-8.9); Platelet Count 182 K/mcL (140-400); Red Blood Count 2.94 M/mcL (3.82-4.97); Red Cell Distribution Width 12.7 % (11.5-14.5); Segmented Neutrophils % 80.3 %; White Blood Count 8.6 K/mcL (4.3-11.1)
[2021-10-23 03:14] LABS: Calcium 7.9 mg/dL (8.6-10.3); Magnesium 2.2 mg/dL (1.6-2.6); Phosphorous 2.5 mg/dL (2.7-4.5); Potassium 3.6 mEq/L (3.5-5.1)
[2021-10-23] MEDS: Ipratropium/Albuterol Neb 3 ML IH SCH ×4 (04:03→22:53)
[2021-10-23] MEDS: *HR* OxyCODONE/APAP 10/325 TABLET PO SCH ×2 (05:03→11:33)
[2021-10-23] MEDS: *HR* Heparin 5,000 UNIT/ML VIAL SQ SCH ×2 (05:03→16:56)
[2021-10-23] MEDS: cefTRIAXone 2,000 MG in 0.9 % Sodium Chloride 20 ML IVP SCH (08:32)
[2021-10-23] MEDS: Sennosides/Docusate Sodium TABLET PO SCH (08:32)
[2021-10-23] MEDS: Insulin LISPRO 300 UNITS/3 ML VIAL SUBQ SCH ×2 (08:36→11:37)
[2021-10-23 13:07] LABS: Adenovirus Not Detected (Not Detect); Bordetella Pertussis Not Detected (Not Detect); Chlamydophila pneumoniae Not Detected (Not Detect); Coronavirus 229E Not Detected (Not Detect); Coronavirus HKU1 Not Detected (Not Detect); Coronavirus NL63 Not Detected (Not Detect); Coronavirus OC43 Not Detected (Not Detect); Human Metapneumovirus Not Detected (Not Detect); Human Rhinovirus/Enterovirus Not Detected (Not Detect); Influenza A Subtype 2009 H1 Not Detected (Not Detect); Influenza B Not Detected (Not Detect); Mycoplasma pneumoniae Not Detected (Not Detect); Parainfluenza Virus 1 Not Detected (Not Detect); Parainfluenza Virus 2 Not Detected (Not Detect); Parainfluenza Virus 3 Not Detected (Not Detect); Parainfluenza Virus 4 Not Detected (Not Detect); Respiratory Syncytial Virus Not Detected (Not Detect); SARS-CoV-2 Not Detected (Not Detect)
[2021-10-23] MEDS: Azithromycin 500 MG in 0.9 % Sodium Chloride 250 ML IVPB SCH (15:06)
[2021-10-23] MEDS: Benzonatate 100 MG CAPSULE PO PRN ×2 (15:07→20:14)
[2021-10-23] MEDS: *HR* OxyCODONE ER (12 HR) 10 MG TABLET PO SCH (16:57)
[2021-10-23] MEDS: Melatonin 3 MG TABLET PO SCH (20:11)
[2021-10-23] MEDS: Acetaminophen 325 MG TABLET PO PRN (23:09)
[2021-10-23] MEDS: *HR* OxyCODONE/APAP 10/325 TABLET PO PRN (23:09)
[2021-10-23] MEDS: Menthol 1 EACH LOZENGE PO PRN (23:44)
[2021-10-24] MEDS: Menthol 1 EACH LOZENGE PO PRN ×3 (01:52→10:22)
[2021-10-24] MEDS: *HR* OxyCODONE ER (12 HR) 10 MG TABLET PO SCH ×3 (01:57→18:07)
[2021-10-24] MEDS: Ipratropium/Albuterol Neb 3 ML IH SCH ×4 (03:39→21:40)
[2021-10-24 04:10] LABS: Basophils % 0.6 %; Eosinophils # 0.5 K/mcL (0.0-0.6); Eosinophils % 9.3 %; Hematocrit 28.4 % (35.3-44.9); Hemoglobin 9.3 g/dL (11.5-15.4); Immature Granulocytes % 0.6 % (0-4); Lymphocytes # 1.1 K/mcL (0.6-4.6); Lymphocytes % 19.6 %; Mean Corpuscular HGB Conc 32.7 g/dL (31.6-35.5); Mean Corpuscular Volume 91.6 fL (83.0-100.0); Mean Platelet Volume 10.6 fL (9.4-12.4); Monocytes # 0.6 K/mcL (0.0-1.3); Neutrophils # 3.2 K/mcL (1.6-8.9); Platelet Count 222 K/mcL (140-400); Red Cell Distribution Width 13.2 % (11.5-14.5); Segmented Neutrophils % 58.9 %; White Blood Count 5.4 K/mcL (4.3-11.1)
[2021-10-24 04:33] LABS: BUN/Creatinine Ratio 16 (6-26); Blood Urea Nitrogen 15 mg/dL (6-20); Calcium 8.6 mg/dL (8.6-10.3); Carbon Dioxide 26 mEq/L (23-29); Chloride 102 mEq/L (98-107); Glucose 90 mg/dL (70-105); Osmolality,Calculated 278 (280-300); Potassium 3.9 mEq/L (3.5-5.1); Sodium 134 mEq/L (136-145); eGFR For African Americans > 60 (> 60); eGFR For Non-African Americans > 60 (> 60)
[2021-10-24] MEDS: *HR* OxyCODONE/APAP 10/325 TABLET PO PRN (05:14)
[2021-10-24] MEDS: *HR* Heparin 5,000 UNIT/ML VIAL SQ SCH ×2 (05:14→18:07)
[2021-10-24] MEDS: Sennosides/Docusate Sodium TABLET PO SCH (10:16)
[2021-10-24] MEDS: cefTRIAXone 2,000 MG in 0.9 % Sodium Chloride 20 ML IVP SCH (10:17)
[2021-10-24] MEDS: Benzonatate 100 MG CAPSULE PO PRN (10:18)
[2021-10-24] MEDS: Azithromycin 250 MG TABLET PO SCH (16:17)
[2021-10-24] MEDS: Melatonin 3 MG TABLET PO SCH (20:53)
[2021-10-25] MEDS: *HR* OxyCODONE ER (12 HR) 10 MG TABLET PO SCH ×3 (02:04→18:05)
[2021-10-25] MEDS: Ipratropium/Albuterol Neb 3 ML IH SCH ×4 (03:52→22:31)
[2021-10-25 04:49] LABS: BUN/Creatinine Ratio 17 (6-26); Blood Urea Nitrogen 16 mg/dL (6-20); Calcium 9.3 mg/dL (8.6-10.3); Carbon Dioxide 28 mEq/L (23-29); Chloride 103 mEq/L (98-107); Glucose 85 mg/dL (70-105); Osmolality,Calculated 286 (280-300); Potassium 4.2 mEq/L (3.5-5.1); Sodium 138 mEq/L (136-145); eGFR For African Americans > 60 (> 60); eGFR For Non-African Americans > 60 (> 60)
[2021-10-25] MEDS: *HR* Heparin 5,000 UNIT/ML VIAL SQ SCH ×2 (05:32→18:05)
[2021-10-25] MEDS: cefTRIAXone 2,000 MG in 0.9 % Sodium Chloride 20 ML IVP SCH (09:32)
[2021-10-25] MEDS: Sennosides/Docusate Sodium TABLET PO SCH (09:32)
[2021-10-25] MEDS: Acetaminophen 325 MG TABLET PO PRN (09:36)
[2021-10-25] MEDS: Azithromycin 250 MG TABLET PO SCH (15:38)
[2021-10-25] MEDS: Benzonatate 100 MG CAPSULE PO PRN (21:09)
[2021-10-25] MEDS: Melatonin 3 MG TABLET PO SCH (21:09)
[2021-10-25] MEDS: *HR* OxyCODONE/APAP 10/325 TABLET PO PRN (21:09)
[2021-10-26] MEDS: *HR* OxyCODONE ER (12 HR) 10 MG TABLET PO SCH (02:13)
[2021-10-26] MEDS: Ipratropium/Albuterol Neb 3 ML IH SCH ×2 (03:41→10:17)
[2021-10-26 05:10] LABS: BUN/Creatinine Ratio 23 (6-26); Blood Urea Nitrogen 20 mg/dL (6-20); Calcium 9.1 mg/dL (8.6-10.3); Carbon Dioxide 29 mEq/L (23-29); Chloride 104 mEq/L (98-107); Glucose 96 mg/dL (70-105); Osmolality,Calculated 292 (280-300); Potassium 4.3 mEq/L (3.5-5.1); Sodium 140 mEq/L (136-145); eGFR For African Americans > 60 (> 60); eGFR For Non-African Americans > 60 (> 60)
[2021-10-26] MEDS: Acetaminophen 325 MG TABLET PO PRN (05:46)
[2021-10-26] MEDS: *HR* Heparin 5,000 UNIT/ML VIAL SQ SCH (05:46)
[2021-10-26 07:50] VITALS: BP 149/95; PULSE 80; TEMP 98; O2SAT 95
[2021-10-26] MEDS ORDERED: Cefdinir 300 MG CAPSULE PO SCH (09:00)
[2021-10-26] MEDS ORDERED: Lisinopril-HCTZ 20-12.5mg TABLET PO SCH (09:00)
[2021-10-26] MEDS: Sennosides/Docusate Sodium TABLET PO SCH (09:20)
== END 2021-10-26 11:30 | disposition home or self-care (01) | DRG 720 ==
LOC: EMEROOARM 12:32 → 2NNU 12:32 → SUATTDRO 10-22 12:10 → 2ANU 10-23 15:17
PROVIDERS: ADMIT General Practice; ATTEND Internal Medicine

== ENCOUNTER 2022-01-08 10:52 | Observation (INO) ==
[2022-01-08] MEDS ORDERED: Lidocaine -MPF 2% 5 ML VIAL ONE (11:36)
[2022-01-08] MEDS ORDERED: Ondansetron 4 MG/2 ML VIAL ONE ×2 (11:36→14:56)
[2022-01-08] MEDS ORDERED: *HR* Rocuronium Bromide 50 MG/5 ML VIAL ONE ×4 (11:36→14:56)
[2022-01-08] MEDS ORDERED: Sugammadex Sodium 200 MG/2 ML VIAL IV ONE (11:36)
[2022-01-08] MEDS ORDERED: *HR* Propofol 200 MG/20 ML VIAL IVP ONE (11:36)
[2022-01-08] MEDS ORDERED: CeFAZolin Syr 2,000MG/20 ML 2,000 MG/20 ML SYRINGE IVPB ONE (11:37)
[2022-01-08] MEDS ORDERED: Ringers Solution, Lactated 1,000 ML IVC SCH (11:45)
[2022-01-08] MEDS ORDERED: *HR* HYDROmorphone PF 0.5 MG/0.5 ML SYRINGE IVP PRN (11:46)
[2022-01-08] MEDS ORDERED: Ondansetron 4 MG/2 ML VIAL IVP PRN ×2 (11:46→18:44)
[2022-01-08] MEDS ORDERED: *HR* FentaNYL (PF) 100 MCG/2 ML VIAL IVP PRN (11:46)
[2022-01-08] MEDS ORDERED: Scopolamine Patch 1.5 MG PATCH.TD72 TD ONE (12:11)
[2022-01-08] MEDS ORDERED: Bupivacaine/EPI 1:200k 0.25% 50 ML VIAL ONE (12:33)
[2022-01-08] MEDS ORDERED: Dexmedetomidine HCl 400 MCG/100 ML MLS IVC ONE (12:46)
[2022-01-08] MEDS ORDERED: Ketamine HCL *QUVA* 50mg (1mL) SYRINGE ONE (12:46)
[2022-01-08] MEDS ORDERED: *HR* Midazolam HCl 2 MG/2 ML VIAL ONE (12:57)
[2022-01-08] MEDS ORDERED: Acetaminophen IV 1,000 MG/100 ML BAG IVPB ONE (13:44)
[2022-01-08] MEDS ORDERED: *HR* HYDROMORPHONE 2 MG/ML VIAL ONE ×2 (13:46→17:14)
[2022-01-08] MEDS ORDERED: Ketorolac 30 MG/ML VIAL ONE (15:03)
[2022-01-08] MEDS ORDERED: Metoclopramide 10 MG/2 ML VIAL ONE (15:03)
[2022-01-08] MEDS ORDERED: *HR* Metoprolol 5 MG/5 ML VIAL IVP ONE (17:02)
[2022-01-08] MEDS ORDERED: Naloxone 0.4 MG/ML INJ IVP PRN (18:44)
[2022-01-08] MEDS ORDERED: diazePAM 10 MG TABLET PO PRN (18:44)
[2022-01-08] MEDS: Ketorolac 30 MG/ML VIAL IVP SCH (19:33)
[2022-01-08] MEDS: *HR* OxyCODONE Immed Rel 15 MG TABLET PO PRN (20:33)
[2022-01-08] MEDS ORDERED: Chloraseptic Spray 177 ML BOTTLE MM PRN (20:46)
[2022-01-08] MEDS ORDERED: OXYCONTIN 15 MG PO SCH (21:00)
[2022-01-08] MEDS: Ringers Solution, Lactated 1,000 ML IVC SCH (22:32)
[2022-01-09] MEDS: Ketorolac 30 MG/ML VIAL IVP SCH ×3 (01:17→15:49)
[2022-01-09] MEDS: *HR* OxyCODONE ER (12 HR) 10 MG TABLET PO SCH ×3 (01:17→16:03)
[2022-01-09 06:52] VITALS: TEMP 97.5; O2SAT 97
[2022-01-09] MEDS: *HR* OxyCODONE Immed Rel 15 MG TABLET PO PRN ×2 (06:52→19:45)
[2022-01-09] MEDS: Ringers Solution, Lactated 1,000 ML IVC SCH (06:53)
[2022-01-09] MEDS ORDERED: Lisinopril-HCTZ 20-12.5mg TABLET PO SCH (09:00)
[2022-01-09] MEDS ORDERED: Celecoxib 200 MG CAPSULE PO PRN (14:58)
[2022-01-09] MEDS ORDERED: Simethicone 80 MG TAB.CHEW PO PRN (15:46)
[2022-01-09 19:47] VITALS: BP 116/78; PULSE 93
== END 2022-01-09 20:55 | disposition home or self-care (01) ==
LOC: SAMDAY 10:52 → INTOOBSV 18:23 → 1NENUOBS 18:23
PROVIDERS: ADMIT Obstetrics & Gynecology; ATTEND Obstetrics & Gynecology